=== PATIENT | male | born 1965 ===

== ENCOUNTER 2020-02-19 13:29 | Outpatient (REF) | payer OTHER, SELFPAY ==
--- NOTE | 2020-02-19 | XR_ITS ---
EXAMINATION: PRE-MRI ORBIT CLINICAL INFORMATION: Pre-MRI orbit COMPARISON: None TECHNIQUE: 3 views of the orbits FINDINGS: No radiopaque foreign body is seen about the orbits. Bony structures are unremarkable. XR/XR pre mri screening IMPRESSION: No radiopaque foreign body seen.
--- NOTE | 2020-02-19 | MR_ITS ---
EXAMINATION: MR LUMBAR SPINE WITHOUT CONTRAST CLINICAL INFORMATION: Lumbar radiculopathy. Right leg weakness. COMPARISON: Lumbar spine radiographs 11/01/2019. TECHNIQUE: MRI of the lumbar spine was obtained using routine sequences without contrast. FINDINGS: Please note that there is transitional anatomy. For the purposes of this report L5 is partially sacralized, shares a rudimentary disc with S1, and is partially incorporated into the sacrum. 5 nonrib-bearing lumbar-type vertebral bodies are considered for this report. Please correlate with plain films prior to any percutaneous or surgical intervention. Lumbar alignment is maintained. Vertebral body heights are preserved. There is mild disc volume loss and there is disc desiccation at L5-S1. There is no bone marrow edema. There are no acute fractures. The conus terminates at the L1 level. No significant soft tissue findings. 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 L1-L2: Disc contour is normal. No central canal stenosis and no foraminal stenosis. L2-L3: Disc contour is normal. No central canal stenosis and no foraminal stenosis. L3-L4: Small annular disc bulge and mild bilateral facet arthropathy. No central canal stenosis. Mild foraminal encroachment bilaterally. L4-L5: There is a shallow left paracentral disc protrusion associated with an annular fissure that compresses the traversing left L5 nerve root within the left subarticular zone. Background annular disc bulge and moderate bilateral facet arthropathy. No central canal stenosis and no significant foraminal stenosis. L5-S1: Rudimentary disc contour is normal. No central canal stenosis and no foraminal stenosis. MR/MR lumbar spine wo con IMPRESSION: - Please note that there is transitional anatomy. For the purposes of this report L5 is partially sacralized, shares a rudimentary disc with S1, and is partially incorporated into the sacrum. 5 nonrib-bearing lumbar-type vertebral bodies are considered for this report. Please correlate with plain films prior to any percutaneous or surgical intervention. - At L4-L5, there is a shallow left paracentral disc protrusion associated with an annular fissure that compresses the traversing left L5 nerve root within the left subarticular zone. 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
== END 2020-02-19 13:30 | disposition home or self-care (01) ==
LOC: HO.MRI 13:29
PROVIDERS: Visit Provider Family Medicine
DX: M54.16 Radiculopathy, lumbar region (principal); R29.898 Other symptoms and signs involving the musculoskeletal system
CPT/HCPCS: 72148

== ENCOUNTER → 2020-02-27 15:03 | Outpatient (BNVA) | payer OTHER, SELFPAY | PROVIDERS: PCP Family Medicine; Referring Provider Family Medicine; Visit Provider Nurse Practitioner | DX: Z76.89 Persons encountering health services in other specified circumstances (principal) ==

== ENCOUNTER 2020-04-22 09:23 | Day surgery (SDC) | payer OTHER, SELFPAY ==
[2020-04-11 14:18] VITALS: BMI 23.4
--- NOTE | 2020-04-17 10:27 | HO.ANESPROP2 ---
Documented by User: Ira Johnsonney 04/17/20 10:27 HPI - Anesthesia Eval Consult details Narrative: 54yo M for Colonoscopy [facility] Past Medical History Medical History Incomplete RBBB Family History Family History Father No problems noted. Mother COPD (chronic obstructive pulmonary disease) Sister Autoimmune deficiency syndrome Surgical History Surgical History History of hernia surgery (~2004) Social History Social History Are you a primary acute care surgeon to a significant other at home: No Do you presently have visiting nurse or other home services: No Alcohol intake: current Alcohol intake frequency: 0-2 drinks per day Alcohol type: beer Smoking Status: Unknown if ever smoked Use of substances other than those prescribed or required for medical reasons: Yes Substance Use Type: Marijuana Substance Use Frequency: Occasionally Advance Directives: No Advance Directives Information Provided: No Advance Directives on File: No Recently lost weight without trying: No Meds Allergies Allergy/AdvReac Type Severity Reaction Status Date / Time azithromycin Allergy Unknown vomiting Verified 02/27/20 15:05 Home Medications Medication Instructions Recorded Confirmed Type gabapentin 1 cap PO BID PRN 04/11/20 04/11/20 History Exam Exam Date and Time: April 17, 2020 1027 Height,Weight and Vital Signs: Height 5 ft 9 in Weight 72.121 kg Assessment and Plan Assessment Anesthesia Assessment: Chart Reviewed Documented by User: aMik Patel MD 04/22/20 10:02 [facility] Past Medical History Medical History Incomplete RBBB Family History Family History Father No problems noted. Mother COPD (chronic obstructive pulmonary disease) Sister Autoimmune deficiency syndrome Surgical History Surgical History History of hernia surgery (~2004) Social History Social History Are you a primary acute care surgeon to a significant other at home: No Do you presently have visiting nurse or other home services: No Alcohol intake: current Alcohol intake frequency: 0-2 drinks per day Alcohol type: beer Smoking Status: Unknown if ever smoked Use of substances other than those prescribed or required for medical reasons: Yes Substance Use Type: Marijuana Substance Use Frequency: Occasionally Advance Directives: No Advance Directives Information Provided: No Advance Directives on File: No Recently lost weight without trying: No Meds Allergies Allergy/AdvReac Type Severity Reaction Status Date / Time azithromycin Allergy Unknown vomiting Verified 02/27/20 15:05 Home Medications Medication Instructions Recorded Confirmed Type gabapentin 1 cap PO BID PRN 04/11/20 04/11/20 History Exam Airway Mallampati Class: II TM Dist: >3cm Neck ROM: Full Loose/Missing/Broken Teeth: No Heart: RRR Lungs: nl Assessment and Plan Assessment Anesthesia Assessment: Anesthesia Plan Discussed and Chart Reviewed Final Anesthetic Review NPO: Yes ASA Class: II Final Preanesthetic Review: No Changes in Pt Med Stat, Meds/Allgs Chart Reviewed, Consent Obtained/Reviewed and Anes Risks/Benef Reviewed Patient Risk: Low Procedure Risk: Low Anesthetic Plan Anesthetic Plan: MAC: Disposition: Standard PACU
[2020-04-22 09:34] VITALS: BP 122/76; PULSE 66; RESP 18; TEMP 36.5; O2SAT 98
[2020-04-22] MEDS: Lactated Ringers 1,000 ML 100 ML IVCONT (09:55)
--- NOTE | 2020-04-22 10:24 | W.PM.OPN ---
Operative Note Operative Note Date of Service: 04/22/20 Narrative: Pre-op diagnosis: Colon cancer screening Post-op diagnosis: other (Diverticulosis, hemorrhoids) Procedure: COLONOSCOPY TILL CECUM Consent: Indications for the procedure and potential complications of bleeding, perforation, reaction to medications and missed diagnosis were discussed with the patient and informed consent was obtained. Instrument: Olympus PCF H 190 L variable stiffness pediatric colonoscope Monitoring: Vital signs and clinical assessment, intermittent blood pressure monitoring, continuous EKG monitoring, Pulse oximetry and Carbon Dioxide monitoring were done throughout the procedure. Colon withdrawl time was 18 minutes. Procedure: The patient was placed in the left lateral decubitis position and pre-procedure medications were administered. After a digital rectal examination of the ano-rectum, the video colonoscope was inserted into the rectum and advanced through the colon to the cecum. The colonoscope was slowly withdrawn in a retrograde panoramic fashion and the colon mucosa was carefully examined including a retroflexed view of the rectum. Findings and interventions are described below. Procedure Difficulty: Without difficulty Findings: Terminal Ileum: Not evaluated Cecum: Normal Ascending Colon: Normal Transverse Colon: Normal Descending Colon: Normal Sigmoid Colon: Moderate diverticulosis Rectum: Normal Ano-rectum: Moderate internal hemorrhoids Colon preparation: Good after some irrigation Impression and Post Procedure Diagnosis: Colonoscopy Findings: No polyps were detected Moderate diverticulosis seen in the sigmoid colon Moderate hemorrhoids on retroflexed exam. Plan: Await pathology results Patient has an appointment on 05/07/20 in the [facility] with Ashli Dorsey NP . Repeat Colonoscopy in 10 years. Above findings were reviewed with the patient and a handout on diverticulosis was given in the discharge area Surgeon: Chas Drake MD Anesthesia: MAC (Ana Tolliver, JALEN) Estimated blood loss (mL): 0 Pathology: none sent Condition: stable Disposition: PACU
--- NOTE | 2020-04-22 10:24 | MHC.SHP ---
Pre-Procedural Eval Section A The patient is an INPATIENT: No The History & Physical has been completed within 30 days and I have reviewed it.: No Section B Chief Complaint: Screening Relevant Family History (Specify if Yes): No Relevant Social History: None Present Medications: see Short Stay Collaborative assessment Medical History: Significant History (Right bundle-branch block Anxiety High cholesterol Lumbar radiculopathy with right-sided sciatica Cervical radiculopathy) History of Previous Operations: Relevant previous surgery/procedure and date(s) (Hernia repair) Allergies: Allergies Allergy/AdvReac Type Severity Reaction Status Date / Time azithromycin Allergy Unknown vomiting Verified 02/27/20 15:05 Review of Systems Sugical H&P ROS: Negative: Constitution, Cardiovascular and Respiratory and Yes, Specify: Gastrointestinal (loose stools due to vegtarian diet) Exam Surgical H&P Exam: Normal: Heart, Normal: Lungs, Normal: Extremities and Normal: Abdomen Plan Diagnosis/Plan: Unchanged I have reviewed the history and physical and performed a pertinent physical examination on my patient. No changes have occurred unless specified.
[2020-04-22 11:10] VITALS: BP 90/47; PULSE 51; RESP 18; TEMP 36.1; O2SAT 97
[2020-04-22 11:14] VITALS: BP 86/46; PULSE 48; RESP 16; O2SAT 97
[2020-04-22 11:26] VITALS: BP 89/48; PULSE 47; RESP 16; O2SAT 95
[2020-04-22 11:36] VITALS: BP 89/50; PULSE 44; RESP 15; O2SAT 96
[2020-04-22 11:47] VITALS: BP 104/64; PULSE 60; RESP 13; TEMP 36.1; O2SAT 96
--- NOTE | 2020-04-22 12:15 | HO.POSTANES ---
Post Anesthesia Evaluation Post Anesthesia Evaluation Vital Signs: Vital Signs Temp Pulse Resp BP Pulse Ox 04/22/20 11:47 97 F 60 13 104/64 96 04/22/20 11:36 44 L 15 89/50 L 96 04/22/20 11:26 47 L 16 89/48 L 95 04/22/20 11:14 48 L 16 86/46 L 97 04/22/20 11:10 96.9 F 51 18 90/47 L 97 04/22/20 09:34 97.7 F 66 18 122/76 98 Anesthesia: Monitored Mental Status: Awake Pain Control: Satisfactory Nausea/Vomiting: None Hydration: Adequate Anesthesia-Related Issues: No Anes. Related Issues
== END 2020-04-22 12:23 | disposition home or self-care (01) ==
PROVIDERS: PCP Family Medicine; Visit Provider Internal Medicine Gastroenterology
PROC: 0DJD8ZZ Inspection of Lower Intestinal Tract, Via Natural or Artificial Opening Endoscopic (ICD-10-PCS; CPT 45378; principal; 2020-04-22 10:30)
DX: Z12.11 Encounter for screening for malignant neoplasm of colon (principal); K57.30 Diverticulosis of large intestine without perforation or abscess without bleeding; K64.8 Other hemorrhoids; I45.10 Unspecified right bundle-branch block; F41.9 Anxiety disorder, unspecified; Z79.899 Other long term (current) drug therapy; F12.90 Cannabis use, unspecified, uncomplicated; Z88.1 Allergy status to other antibiotic agents
CPT/HCPCS: 45378

== ENCOUNTER 2023-05-26 15:50 | Outpatient (AMB) | payer OTHER, SELFPAY ==
[2023-05-26 16:16] VITALS: BP 122/78; PULSE 81; O2SAT 99; BMI 22.3
--- NOTE | 2023-05-26 16:16 | A.OFFPC_ITS ---
Vital Signs 05/26/23 16:16 Height 5 ft 9 in Weight 151 lb BMI 22.3 BP 122/78 Blood Pressure Location Lt brachial Position Sitting Pulse 81 Pulse Source Pulse Oximeter Pulse Oximetry (%) 99 Oxygen Delivery Method Room Air Intake Visit Reasons: phy Intake Note: Patient is here for his physical today, would like back and neck checked out today, too. Patient would like to talk about arthritis regarding that. Allergies azithromycin Allergy (Unknown, Verified 05/26/23 16:18) vomiting Tobacco use date assessed: 05/26/23 Dental Screening Dental Screen Date: 05/26/23 Did you have a dental visit in the last 12 months?: No Did you have a dental problem in the last 6 months where you did not have access to dental care?: No Was dental information given to patient?: Patient declined HPI phy HPI Details 57 y/o male presents for a CPE with f/u labs and health maintenance. No recent labs to review. Pt has ongoing complaints of back/neck pain. He reports he has trialed physical therapy before which had caused more pain. [facility] Medical History Incomplete RBBB Surgical History Hx of LASIK History of hernia surgery (~2004) Family History Father No problems noted. Mother COPD (chronic obstructive pulmonary disease) Sister Autoimmune deficiency syndrome Social History Housing: House Are you a primary senior care provider to a significant other at home: No Do you presently have visiting nurse or other home services: No Alcohol intake: current Alcohol intake frequency: 0-2 drinks per day Alcohol type: beer Patient Tobacco Use Status: Never used Tobacco e-Cigarette/Vaping Use: Never Used Substance Use Type: Marijuana service: Yes Current occupational status: retired Current occupation: Semi retired. Cognitive needs: No Hearing needs: No Vision needs: No Questionnaire PHQ-9 Over the last 2 weeks, how often have you been bothered by any of the following problems? 1. Little interest or pleasure in doing things: not at all 2. Feeling down, depressed, or hopeless: several days 3. Trouble falling or staying asleep, or sleeping too much: nearly every day 4. Feeling tired or having little energy: several days 5. Poor appetite or overeating: not at all 6. Feeling bad about yourself - or that you are a failure or have let yourself or your family down: not at all 7. Trouble concentrating on things, such as reading the newspaper or watching television: not at all 8. Moving or speaking so slowly that other people could have noticed. Or the opposite - being so fidgety or restless that you have been moving around a lot more than usual: not at all 9. Thoughts that you would be better off or of hurting yourself in some way: not at all Total score: 5 Source: Developed by Drs. Marcus Sparks, Maye Ureña, Sandeep Leyva and colleagues, with an educational shelley from [employer]. Thrive Questionnaire Date Thrive assessed: 05/26/23 I am a: Patient What is your living situation today?: I have a steady place to live Within the past 12 months, did the food you bought not last and you didn't have the money to get more?: Never true Within the past 12 months, did you worry whether your food would run out before you got money to buy more?: Never true Do you have trouble paying for medicines?: No Do you have trouble getting transportation to medical appointments?: No Do you have trouble paying your heating and electricity bill?: No Do you have trouble taking care of your child, family member or friend?: No Do you have trouble with day-to-day activities such as bathing, preparing meals, shopping, managing finances, etc.?: No Are you currently unemployed and looking for a job?: No Are you interested in more education?: No THRIVE Score: 0 AUDIT C Alcohol Use Questionnaire (AUDIT-C) 1. How often do you have a drink containing alcohol?: 4 or more times a week 2. How many drinks containing alcohol do you have on a typical day when you are drinking?: 1 or 2 3. How often do you have six or more drinks on one occasion?: Never Total Score: 4 ELVIRA-7 AMB Questionnaire ELVIRA-7 Date ELVIRA - 7 assessed: 05/26/23 Feeling nervous, anxious, or on edge: 1 = Several days Not being able to stop or control worryin = Several days Worrying too much about different things: 1 = Several days Trouble relaxin = Several days Being so restless that it is hard to sit still: 0 = Not at all Becoming easily annoyed or irritable: 1 = Several days Feeling afraid as if something awful might happen: 0 = Not at all Total ELVIRA-7 score (0-4 normal; 5-9 mild; 10-14 moderate; 15-21 severe): 5 Source: Developed by Drs. Marcus Sparks, Maye Ureña, Sandeep Leyva and colleagues, with an educational shelley from [employer]. Review of Systems Const Denies chills, Denies fatigue, Denies fever(s), Denies headache(s) and Denies weakness Eyes Denies change in vision ENT Denies dizziness, Denies headache(s), Denies hearing loss, Denies nasal congestion, Denies sinus pain, Denies sinus pressure and Denies sore throat Card Denies chest pain, Denies lightheadedness, Denies dyspnea and Denies other (palpitations) Resp Denies cough, Denies dyspnea and Denies wheezing GI Denies abdominal pain, Denies melena, Denies hematochezia, Denies change in bowel habits, Denies dyspepsia and Denies nausea Denies hematuria and Denies dysuria Musc Denies abnormal gait, Denies myalgias, Denies arthralgias, Denies numbness and Denies tingling Skin/Breast Denies rash, Denies unusual bruising and Denies wounds Neuro Denies abnormal gait, Denies dizziness, Denies headache(s), Denies memory loss, Denies numbness, Denies Sensory deficit (Neuro), Denies tingling and Denies weakness Psych Denies anxiety, Denies depression and Denies memory loss Endo Denies cold intolerance, Denies fatigue, Denies heat intolerance, Denies polydipsia and Denies polyuria Anatoly/Lymph Denies easy bleeding and Denies easy bruising Aller/Immun Denies wheezing Physical exam (Primary Care) Vital Signs: Last Vital Signs Pulse 81 05/26/23 16:16 BP 122/78 05/26/23 16:16 Pulse Ox 99 05/26/23 16:16 Oxygen Delivery Method Room Air 05/26/23 16:16 BMI result Body Mass Index 22.3 Tobacco/Smoking Status: Tobacco use Status Tobacco use date assessed 05/26/23 05/26/23 16:33 Patient Tobacco Use Status Never used Tobacco 05/26/23 16:33 e-Cigarette/Vaping Use Never Used 05/26/23 16:33 PHQ-9: PHQ-9 Score PHQ-9: Total score 5 05/26/23 16:33 Thrive Assessment: Date of Thrive Assessment Date Thrive assessed 05/26/23 05/26/23 16:33 Const General: no acute distress, well developed, alert and awake Nutritional Appearance: well nourished Orientation/consciousness: patient oriented x3 HENMT Head: Yes normocephalic and Yes atraumatic Ears: hearing grossly normal bilaterally and TM's normal bilaterally General nose exam: Normal external nose present and Normal nares present Mouth: Normal oral and palatal mucosa present and moist mucous membranes Teeth and gingiva: dentition normal Throat: Yes posterior oropharynx normal Eyes General: appearance normal, both eyes and all related structures Pupils: Equal, round and reactive pupils present and Pupil accommodation reflex normal EOM: EOMs intact bilaterally Neck Neck: Yes normal visual inspection, Yes no lymphadenopathy and Yes trachea midline Thyroid: Thyroid normal Carotids: no bruits Lymphatic: no lymphadenopathy noted Chest Chest palpation & inspection: normal inspection of the chest Resp Effort & Inspection: normal respiratory effort Auscultation: clear to auscultation bilaterally Cardio Rate: regular rate Rhythm: regular rhythm Heart sounds: S1 normal heart sound present, S2 normal heart sound present, no gallops, no murmurs and no rubs Bruits: no abdominal aortic bruits and no carotid bruits GI Palpation (GI): No Abdominal aortic bruit present, Soft to palpation, nontender, No hepatosplenomegaly present and No Rebound tenderness present Auscultation: normal bowel sounds General: Yes no CVA tenderness Back/Spine/Pelvis Back: no CVA tenderness Cervical Spine: cervical ROM normal and No Cervical spine tenderness Thoracic/Lumbar Spine: thoraco-lumbar ROM normal, No pain with thoraco-lumbar ROM, No thoracic spinal tenderness and No lumbar spinal tenderness Skin Lesions: no lesions Rashes: no rashes Trauma: no lacerations or abrasions Wounds: no wounds Nails: normal Neuro General: patient oriented x3 Cranial nerves: Yes Equal, round and reactive pupils present Cognition (Neuro): normal cognition Gait exam (Neuro): Normal gait present Motor exam (neuro): 5/5 motor strength present throughout Sensory Exam: No Sensory deficit (Neuro) Deep tendon reflexes (DTR's): Right patellar reflex intensity grade: 2+ and Left patellar reflex intensity grade: 2+ Extrem General: Yes normal to inspection and No edema Psych Appearance: grossly normal Affect: normal affect Attitude: cooperative Thought process: Normal thought process present Assessment and Plan Assessment & Plan (1) Adult general medical exam: Code(s): Z00.00 - Encounter for general adult medical examination without abnormal findings Plan: 57-year-old?male?presents?for?complete?physical?exam Encouraged?ongoing?healthy?diet?with?active?lifestyle?and?plenty?of?exercise (2) Cervical radiculopathy: Code(s): M54.12 - Radiculopathy, cervical region Plan: History?of?cervical?radiculopathy?and?lumbar?spine?disc?degeneration. Had?seen?Neurosurgery?in?2020?after?MRI?but?no?indication?at?that?time?for?surge ry. Will?repeat?x-rays?and?patient?will?try?nonsteroidal?anti-inflammatories?and?we ?will?consider?physical?therapy?after?x-ray. (3) Polyarthralgia: Code(s): M25.50 - Pain in unspecified joint Plan: Polyarthralgia?of?spine?and?hands Possible?inflammatory?or?osteoarthritis. Check?inflammatory?markers?and?x-rays?of?hands As?above,?patient?will?use?NSAIDs (4) Sun-damaged skin: Code(s): L57.8 - Other skin changes due to chronic exposure to nonionizing radiation Plan: In?refer?to?dermatology?for?skin?survey (5) Colon cancer screening: Code(s): Z12.11 - Encounter for screening for malignant neoplasm of colon Plan: Patient?says?he?had?a?colonoscopy?in?2020?and?was?told?to?follow-up?in?10?years. ??Up-to-date.??Follow-up?in?2030 (6) Screening for prostate cancer: Code(s): Z12.5 - Encounter for screening for malignant neoplasm of prostate Plan: Check?PSA (7) Lumbar back pain with radiculopathy affecting right lower extremity: Code(s): M54.16 - Radiculopathy, lumbar region Plan: Ongoing?lumbar?spine?pain,?decreased?flexibility?and?radiculopathy History?of?disc?compression?though?neuro?surgery?had?found?no?indication?for?estuardo gical?intervention?at?that?time. Repeating?x-rays Will?follow-up?at?his?next?visit. Orders: Orders Complete Blood Count Auto Diff Today Z00.00 - Encounter for general adult medical examination without abnormal findings Prostate Specific Antigen Scr Today Z12.5 - Encounter for screening for malignant neoplasm of prostate UA and rflx microscopic Today Z00.00 - Encounter for general adult medical examination without abnormal findings Erythrocyte Sedimentation Rate Today M54.12 - Radiculopathy, cervical region Rheumatoid Factor Today M25.50 - Pain in unspecified joint Comprehensive Independence. Panel Fast Today Z00.00 - Encounter for general adult medical examination without abnormal findings Microalbumin, Random (w Creat) Today I10 - Essential (primary) hypertension Lipid Panel Today Z00.00 - Encounter for general adult medical examination without abnormal findings TSH reflex Free T4 Today Z00.00 - Encounter for general adult medical examination without abnormal findings CRP High Sensitivity Today M54.12 - Radiculopathy, cervical region XR cervical spine 3V Today M54.12 - Radiculopathy, cervical region XR lumbar spine 2-3V Today M54.16 - Radiculopathy, lumbar region XR thoracic spine 2V Today M25.50 - Pain in unspecified joint, M54.9 - Dorsalgia, unspecified XR hand LT min 3V Today M25.50 - Pain in unspecified joint, M79.642 - Pain in left hand XR hand RT min 3V Today M25.50 - Pain in unspecified joint, M79.641 - Pain in right hand Cyclic Citrullinated Peptide Today M25.50 - Pain in unspecified joint KELLY Reflex Titer and Pattern Today M25.50 - Pain in unspecified joint Referrals Dermatology Referral L57.8 - Other skin changes due to chronic exposure to nonionizing radiation Coding Level of Care Code Est Pt Level 3 (62801) Est Pt Prev Care 40-64y(88259) Diagnoses Adult general medical exam Z00.00 Cervical radiculopathy M54.12 Polyarthralgia M25.50 Sun-damaged skin L57.8 Colon cancer screening Z12.11 Screening for prostate cancer Z12.5 Lumbar back pain with radiculopathy affecting right lower extremity M54.16
== END 2023-05-31 16:10 | disposition home or self-care (01) ==
PROVIDERS: PCP Family Medicine; Visit Provider Family Medicine
DX: Z00.00 Encounter for general adult medical examination without abnormal findings (principal); M54.12 Radiculopathy, cervical region; M25.50 Pain in unspecified joint; L57.8 Other skin changes due to chronic exposure to nonionizing radiation; M54.16 Radiculopathy, lumbar region
CPT/HCPCS: 99213; 99396

== ENCOUNTER 2023-05-28 09:13 | Outpatient (REF) | payer OTHER, SELFPAY ==
[2023-05-28 11:31] LABS: MANUAL DIFF FLAG NO
[2023-05-28 11:50] LABS: Basophils Absolute Auto 0.1 X10*3/uL (0.0-0.2); Basophils Percent Auto 1.3 % (0-2); Eosinophils Absolute Auto 0.2 X10*3/uL (0.0-0.4); Eosinophils Percent Auto 3.8 % (0-4); Hematocrit 41.7 % (42.0-52.0); Hemoglobin 14.2 g/dl (14.0-18.0); Imm Gran Abs Auto 0.01 X10*3/uL (0.00-0.03); Imm Gran Pct Auto 0.2 % (0.0-0.4); Lymphocytes Percent Auto 37.5 % (20-40); Mean Corpuscular HGB Conc 34.1 g/dl (31.0-36.0); Mean Platelet Volume 9.8 fL (9.4-12.4); Monocytes Absolute Auto 0.5 X10*3/uL (0.1-1.2); Neutrophils Absolute Auto 2.5 x10*3/uL (2.0-8.3); Neutrophils Percent Auto 48.2 % (45-73); Platelet Count 337 X10*3/uL (160-400); Red Blood Count 4.74 X10*6/uL (4.60-5.80); Red Cell Distribution Width 13.4 % (11.0-16.0); White Blood Count 5.2 X10*3/uL (4.8-10.8)
[2023-05-28 12:02] LABS: Appearance Urine Clear; Color Urine Yellow; Glucose Urine UA Negative (Negative); Leukocyte Esterase Urine Negative (Negative); Nitrite Urine Negative (Negative); PH 8.5 (5.0-9.0); Urine Blood Negative (Negative); Urine Ketones Negative (Negative); Urine Protein Negative (Neg-Trace)
[2023-05-28 12:18] LABS: Alanine Aminotransferase 18 U/L (0-40); Albumin Level 4.2 g/dL (3.5-5.0); Alkaline Phosphatase 55 U/L (39-117); Anion Gap 10 (12-20); Aspartate Amino Transferase 19 U/L (5-37); Bilirubin Total 0.5 mg/dL (0.0-1.0); Blood Urea Nitrogen 13 mg/dL (9-16); Calcium 9.4 mg/dL (8.4-10.2); Carbon Dioxide 26 mmol/L (22-29); Chloride 107 mmol/L (96-108); Cholesterol 228 mg/dL (<200); Estimated Glomerular Filt Rate > 60; Glucose Fasting 93 mg/dL (60-99); HDL Cholesterol 56 mg/dL (>40); LDL Cholesterol Calculated 160 mg/dL (<100); Potassium 4.2 mmol/L (3.3-5.1); Sodium 139 mmol/L (135-145); Triglycerides 64 mg/dL (<150)
[2023-05-28 12:26] LABS: Erythrocyte Sedimentation Rate 4 MM/HR (0-15)
[2023-05-28 12:36] LABS: TSH reflex Free T4 1.15 uIU/mL (0.32-4.0)
[2023-05-28 12:38] LABS: Creatinine Urine 135.31 mg/dL; Microalbum/Creatinine Ratio Ur 4.4 ug/mg cr (<30)
[2023-05-28 18:28] LABS: Rheumatoid Factor < 13.0 IU/mL (<15.0)
[2023-05-28 18:43] LABS: Prostate Specific Antigen Scr 0.89 ng/mL (<0.05-4.0)
[2023-05-31 11:35] LABS: CRP High Sensitivity 1.4 mg/L
[2023-05-31 14:54] LABS: Cyclic Citrullinated Peptide <16 UNITS
[2023-06-01 15:29] LABS: Anti Nuclear Antibody Screen NEGATIVE (NEGATIVE)
== END 2023-05-28 09:14 | disposition home or self-care (01) ==
LOC: HO.WFDLDS 09:13
PROVIDERS: Visit Provider Family Medicine
DX: Z00.00 Encounter for general adult medical examination without abnormal findings (principal); Z12.5 Encounter for screening for malignant neoplasm of prostate; M54.12 Radiculopathy, cervical region; I10 Essential (primary) hypertension
CPT/HCPCS: 36415; 80053; 80061; 81003; 82043; 82570; 84153; 84443; 85025; 85652; 86038; 86141; 86200; 86431

== ENCOUNTER 2023-07-02 07:03 | Outpatient (REF) | payer OTHER, SELFPAY ==
--- NOTE | ~2023-07-02 | XR_ITS ---
EXAMINATION: XR RIGHT HAND, LEFT HAND, LUMBAR SPINE, THORACIC SPINE, CERVICAL SPINE CLINICAL INFORMATION: Chronic pain in lumbar, bilateral hands unspecified joints, cervical radiculopathy. COMPARISON: MR lumbar spine of 02/19/2020. Radiographs of the cervical and lumbar spine of 11/01/2019. TECHNIQUE: 3 views of each hand. 3 views of the lumbar spine. 3 views of the thoracic spine. 4 views of the cervical spine. FINDINGS: Cervical Spine: Moderate multilevel cervical spondylosis most notable for moderate loss of disc space height at C3-C4 and C4-C5. Thoracic Spine: Mild multilevel degenerative changes in the thoracic spine. Minimal rightward curvature of the lower thoracic spine. No thoracic vertebral body compression fractures are appreciated. Lumbar Spine: Slight leftward curvature of the ehk-od-twdst lumbar spine. Moderate degenerative changes in the bilateral sacroiliac joints. Rounded pelvic calcifications are likely vascular. Facet arthritis in the sbs-ix-pvwhn lumbar spine. Moderate multilevel lumbar spondylosis with loss of disc space height most notable at L5-S1. Possible spondylolysis at L5-S1 is difficult to confirm. Right Hand: Moderate degenerative changes in the first carpometacarpal joint with joint space narrowing and hypertrophic change. Mild degenerative changes with hypertrophic change in scattered DIP joints. No acute displaced fracture appreciated. Left Hand: Moderate degenerative changes in the first carpometacarpal joint with joint space narrowing and hypertrophic change. Mild degenerative changes with hypertrophic change in scattered DIP joints. No acute displaced fracture appreciated. XR/XR hand LT min 3V IMPRESSION: 1. Moderate degenerative changes in the bilateral first carpometacarpal joints. 2. Moderate multilevel cervical spondylosis most notable for moderate loss of disc space height at C3-C4 and C4-C5. 3. Mild multilevel degenerative changes in the thoracic spine. 4. Moderate multilevel lumbar spondylosis with loss of disc space height most notable at L5-S1. Possible spondylolysis at L5-S1 is difficult to confirm. 5. Moderate degenerative changes in the bilateral sacroiliac joints. 6. Mild degenerative changes in scattered DIP joints of both hands.
--- NOTE | ~2023-07-02 | XR_ITS ---
EXAMINATION: XR RIGHT HAND, LEFT HAND, LUMBAR SPINE, THORACIC SPINE, CERVICAL SPINE CLINICAL INFORMATION: Chronic pain in lumbar, bilateral hands unspecified joints, cervical radiculopathy. COMPARISON: MR lumbar spine of 02/19/2020. Radiographs of the cervical and lumbar spine of 11/01/2019. TECHNIQUE: 3 views of each hand. 3 views of the lumbar spine. 3 views of the thoracic spine. 4 views of the cervical spine. FINDINGS: Cervical Spine: Moderate multilevel cervical spondylosis most notable for moderate loss of disc space height at C3-C4 and C4-C5. Thoracic Spine: Mild multilevel degenerative changes in the thoracic spine. Minimal rightward curvature of the lower thoracic spine. No thoracic vertebral body compression fractures are appreciated. Lumbar Spine: Slight leftward curvature of the eii-hd-fmffn lumbar spine. Moderate degenerative changes in the bilateral sacroiliac joints. Rounded pelvic calcifications are likely vascular. Facet arthritis in the kpb-yd-fdyzz lumbar spine. Moderate multilevel lumbar spondylosis with loss of disc space height most notable at L5-S1. Possible spondylolysis at L5-S1 is difficult to confirm. Right Hand: Moderate degenerative changes in the first carpometacarpal joint with joint space narrowing and hypertrophic change. Mild degenerative changes with hypertrophic change in scattered DIP joints. No acute displaced fracture appreciated. Left Hand: Moderate degenerative changes in the first carpometacarpal joint with joint space narrowing and hypertrophic change. Mild degenerative changes with hypertrophic change in scattered DIP joints. No acute displaced fracture appreciated. XR/XR cervical spine 3V IMPRESSION: 1. Moderate degenerative changes in the bilateral first carpometacarpal joints. 2. Moderate multilevel cervical spondylosis most notable for moderate loss of disc space height at C3-C4 and C4-C5. 3. Mild multilevel degenerative changes in the thoracic spine. 4. Moderate multilevel lumbar spondylosis with loss of disc space height most notable at L5-S1. Possible spondylolysis at L5-S1 is difficult to confirm. 5. Moderate degenerative changes in the bilateral sacroiliac joints. 6. Mild degenerative changes in scattered DIP joints of both hands.
--- NOTE | ~2023-07-02 | XR_ITS ---
EXAMINATION: XR RIGHT HAND, LEFT HAND, LUMBAR SPINE, THORACIC SPINE, CERVICAL SPINE CLINICAL INFORMATION: Chronic pain in lumbar, bilateral hands unspecified joints, cervical radiculopathy. COMPARISON: MR lumbar spine of 02/19/2020. Radiographs of the cervical and lumbar spine of 11/01/2019. TECHNIQUE: 3 views of each hand. 3 views of the lumbar spine. 3 views of the thoracic spine. 4 views of the cervical spine. FINDINGS: Cervical Spine: Moderate multilevel cervical spondylosis most notable for moderate loss of disc space height at C3-C4 and C4-C5. Thoracic Spine: Mild multilevel degenerative changes in the thoracic spine. Minimal rightward curvature of the lower thoracic spine. No thoracic vertebral body compression fractures are appreciated. Lumbar Spine: Slight leftward curvature of the qrn-ag-rhaxe lumbar spine. Moderate degenerative changes in the bilateral sacroiliac joints. Rounded pelvic calcifications are likely vascular. Facet arthritis in the dqv-ex-exnfw lumbar spine. Moderate multilevel lumbar spondylosis with loss of disc space height most notable at L5-S1. Possible spondylolysis at L5-S1 is difficult to confirm. Right Hand: Moderate degenerative changes in the first carpometacarpal joint with joint space narrowing and hypertrophic change. Mild degenerative changes with hypertrophic change in scattered DIP joints. No acute displaced fracture appreciated. Left Hand: Moderate degenerative changes in the first carpometacarpal joint with joint space narrowing and hypertrophic change. Mild degenerative changes with hypertrophic change in scattered DIP joints. No acute displaced fracture appreciated. XR/XR lumbar spine 2-3V IMPRESSION: 1. Moderate degenerative changes in the bilateral first carpometacarpal joints. 2. Moderate multilevel cervical spondylosis most notable for moderate loss of disc space height at C3-C4 and C4-C5. 3. Mild multilevel degenerative changes in the thoracic spine. 4. Moderate multilevel lumbar spondylosis with loss of disc space height most notable at L5-S1. Possible spondylolysis at L5-S1 is difficult to confirm. 5. Moderate degenerative changes in the bilateral sacroiliac joints. 6. Mild degenerative changes in scattered DIP joints of both hands.
--- NOTE | ~2023-07-02 | XR_ITS ---
EXAMINATION: XR RIGHT HAND, LEFT HAND, LUMBAR SPINE, THORACIC SPINE, CERVICAL SPINE CLINICAL INFORMATION: Chronic pain in lumbar, bilateral hands unspecified joints, cervical radiculopathy. COMPARISON: MR lumbar spine of 02/19/2020. Radiographs of the cervical and lumbar spine of 11/01/2019. TECHNIQUE: 3 views of each hand. 3 views of the lumbar spine. 3 views of the thoracic spine. 4 views of the cervical spine. FINDINGS: Cervical Spine: Moderate multilevel cervical spondylosis most notable for moderate loss of disc space height at C3-C4 and C4-C5. Thoracic Spine: Mild multilevel degenerative changes in the thoracic spine. Minimal rightward curvature of the lower thoracic spine. No thoracic vertebral body compression fractures are appreciated. Lumbar Spine: Slight leftward curvature of the qxo-xe-qtqnw lumbar spine. Moderate degenerative changes in the bilateral sacroiliac joints. Rounded pelvic calcifications are likely vascular. Facet arthritis in the yay-mg-rbqxc lumbar spine. Moderate multilevel lumbar spondylosis with loss of disc space height most notable at L5-S1. Possible spondylolysis at L5-S1 is difficult to confirm. Right Hand: Moderate degenerative changes in the first carpometacarpal joint with joint space narrowing and hypertrophic change. Mild degenerative changes with hypertrophic change in scattered DIP joints. No acute displaced fracture appreciated. Left Hand: Moderate degenerative changes in the first carpometacarpal joint with joint space narrowing and hypertrophic change. Mild degenerative changes with hypertrophic change in scattered DIP joints. No acute displaced fracture appreciated. XR/XR thoracic spine 2V IMPRESSION: 1. Moderate degenerative changes in the bilateral first carpometacarpal joints. 2. Moderate multilevel cervical spondylosis most notable for moderate loss of disc space height at C3-C4 and C4-C5. 3. Mild multilevel degenerative changes in the thoracic spine. 4. Moderate multilevel lumbar spondylosis with loss of disc space height most notable at L5-S1. Possible spondylolysis at L5-S1 is difficult to confirm. 5. Moderate degenerative changes in the bilateral sacroiliac joints. 6. Mild degenerative changes in scattered DIP joints of both hands.
--- NOTE | ~2023-07-02 | XR_ITS ---
EXAMINATION: XR RIGHT HAND, LEFT HAND, LUMBAR SPINE, THORACIC SPINE, CERVICAL SPINE CLINICAL INFORMATION: Chronic pain in lumbar, bilateral hands unspecified joints, cervical radiculopathy. COMPARISON: MR lumbar spine of 02/19/2020. Radiographs of the cervical and lumbar spine of 11/01/2019. TECHNIQUE: 3 views of each hand. 3 views of the lumbar spine. 3 views of the thoracic spine. 4 views of the cervical spine. FINDINGS: Cervical Spine: Moderate multilevel cervical spondylosis most notable for moderate loss of disc space height at C3-C4 and C4-C5. Thoracic Spine: Mild multilevel degenerative changes in the thoracic spine. Minimal rightward curvature of the lower thoracic spine. No thoracic vertebral body compression fractures are appreciated. Lumbar Spine: Slight leftward curvature of the tjg-ar-fiwvb lumbar spine. Moderate degenerative changes in the bilateral sacroiliac joints. Rounded pelvic calcifications are likely vascular. Facet arthritis in the pez-ny-zfypl lumbar spine. Moderate multilevel lumbar spondylosis with loss of disc space height most notable at L5-S1. Possible spondylolysis at L5-S1 is difficult to confirm. Right Hand: Moderate degenerative changes in the first carpometacarpal joint with joint space narrowing and hypertrophic change. Mild degenerative changes with hypertrophic change in scattered DIP joints. No acute displaced fracture appreciated. Left Hand: Moderate degenerative changes in the first carpometacarpal joint with joint space narrowing and hypertrophic change. Mild degenerative changes with hypertrophic change in scattered DIP joints. No acute displaced fracture appreciated. XR/XR hand RT min 3V IMPRESSION: 1. Moderate degenerative changes in the bilateral first carpometacarpal joints. 2. Moderate multilevel cervical spondylosis most notable for moderate loss of disc space height at C3-C4 and C4-C5. 3. Mild multilevel degenerative changes in the thoracic spine. 4. Moderate multilevel lumbar spondylosis with loss of disc space height most notable at L5-S1. Possible spondylolysis at L5-S1 is difficult to confirm. 5. Moderate degenerative changes in the bilateral sacroiliac joints. 6. Mild degenerative changes in scattered DIP joints of both hands.
== END 2023-07-02 07:04 | disposition home or self-care (01) ==
LOC: HO.XRAY 07:03
PROVIDERS: PCP Family Medicine; Visit Provider Family Medicine
DX: M54.12 Radiculopathy, cervical region (principal); M54.16 Radiculopathy, lumbar region; M54.9 Dorsalgia, unspecified; M79.642 Pain in left hand; M79.641 Pain in right hand
CPT/HCPCS: 72040; 72070; 72100; 73130

== ENCOUNTER 2023-09-17 08:16 | Outpatient (AMB) | payer OTHER, SELFPAY ==
[2023-09-17 08:18] VITALS: BP 128/70; PULSE 87; RESP 14; TEMP 36.6; O2SAT 99; BMI 22.1
--- NOTE | 2023-09-17 08:18 | A.OFFPC_ITS ---
Vital Signs 09/17/23 08:18 Height 5 ft 9 in Weight 149 lb 8 oz BMI 22.1 BP 128/70 Blood Pressure Location Rt brachial Position Sitting Respiration 14 Pulse 87 Pulse Source Pulse Oximeter Temp 97.9 F Temp Source Temporal Artery Scan Pulse Oximetry (%) 99 Oxygen Delivery Method Room Air Intake Visit Reasons: X-rays and blood work f/u Intake Note: Patient would like referral to rheumatology. Clearing Distribution Clerk Required: No Accompanied by: Self / Same As Patient Allergies Seasonal Allergies Allergy (Intermediate, Verified 09/17/23 08:24) Itchy Eyes azithromycin Allergy (Unknown, Verified 09/17/23 08:24) vomiting Medication List - Last Reconciled 09/17/23 by Hudson Cuba MD No Known Home Meds Tobacco use date assessed: 05/26/23 Dental Screening Dental Screen Date: 05/26/23 HPI X-rays and blood work f/u HPI Details 57 y/o male presents today for x-rays an d blood work f/u. X-rays show: 1. Moderate degenerative changes in the bilateral first carpometacarpal joints. 2. Moderate multilevel cervical spondylo sis most notable for moderate loss of disc space height at C3-C4 and C4-C5. 3. Mild multilevel degenerative changes in the thoracic spine. 4. Moderate multilevel lumbar spondylosi s with loss of disc space height most notable at L5-S1. Possible spondylolysis at L5-S1 is difficult to confirm. 5. Moderate degenerative changes in the bilateral sacroiliac joints. 6. Mild degenerative changes in scattere d DIP joints of both hands. Labs were drawn 05/28/23. Reviewed labs with pt. Triglycerides 64. TC 228. LDL 160. HDL 56. PFSH Medical History Incomplete RBBB Surgical History Hx of LASIK History of hernia surgery (~2004) Family History Father No problems noted. Mother COPD (chronic obstructive pulmonary disease) Sister Autoimmune deficiency syndrome Other Mental health disorder Substance abuse Social History (Updated 09/17/23 @ 08:27 by CATHERINE Gonzalez) Household Members: Spouse and Family Both parents involved: No Caregiver staying overnight: No Housing: House Are you a primary pediatric care coordinator to a significant other at home: No Do you presently have visiting nurse or other home services: No 75 years or older and lives alone: No Alcohol intake: current Alcohol intake frequency: 0-2 drinks per day Alcohol type: beer Patient Tobacco Use Status: Never used Tobacco e-Cigarette/Vaping Use: Never Used Use of substances other than those prescribed or required for medical reasons: No Substance Use Type: Marijuana Currently Displaying Signs/Symptoms of Drug Intoxication Withdrawal: No Any prior treatment program specific to substance use: No Have you been hit, kicked, punched, or otherwise hurt by someone within the past year? If so, by whom?: No Do you feel safe in your current relationship?: No Is there a partner from a previous relationship who is making you feel unsafe now?: No Are you made to feel afraid or neglected: No service: Yes Current occupational status: retired Current occupation: Semi retired. Cognitive needs: No Hearing needs: No Vision needs: No Questionnaire Thrive Questionnaire Date Thrive assessed: 05/26/23 ELVIRA-7 AMB Questionnaire ELVIRA-7 Date ELVIRA - 7 assessed: 05/26/23 Source: Developed by Drs. Marcus Sparks, Maye Ureña, Sandeep Leyva and colleagues, with an educational shelley from [employer]. Review of Systems Const Denies chills, Denies fatigue, Denies fever(s), Denies headache(s) and Denies weakness ENT Denies dizziness and Denies headache(s) Card Denies dyspnea Resp Denies cough, Denies dyspnea, Denies wheezing and Denies other (shortness of breath) Musc Denies numbness and Denies tingling Neuro Denies dizziness, Denies headache(s), Denies numbness, Denies tingling and Denies weakness Psych Denies anxiety and Denies depression Endo Denies fatigue Aller/Immun Denies wheezing Physical exam (Primary Care) Vital Signs: Last Vital Signs Temp 97.9 F 09/17/23 08:18 Pulse 87 09/17/23 08:18 Resp 14 09/17/23 08:18 BP 128/70 09/17/23 08:18 Pulse Ox 99 09/17/23 08:18 Oxygen Delivery Method Room Air 09/17/23 08:18 BMI result Body Mass Index 22.1 Tobacco/Smoking Status: Tobacco use Status Tobacco use date assessed 05/26/23 09/17/23 08:24 Patient Tobacco Use Status Never used Tobacco 09/17/23 08:27 e-Cigarette/Vaping Use Never Used 09/17/23 08:27 Thrive Assessment: Date of Thrive Assessment Date Thrive assessed 05/26/23 09/17/23 08:24 Const General: well developed; No acute distress Nutritional Appearance: well nourished Orientation/consciousness: patient oriented x3 HENMT Head: Yes normocephalic and Yes atraumatic Eyes General: appearance normal, both eyes and all related structures Pupils: Equal, round and reactive pupils present EOM: EOMs intact bilaterally Resp Effort & Inspection: normal respiratory effort Neuro General: patient oriented x3 and gait normal Cranial nerves: Yes Equal, round and reactive pupils present Psych Affect: normal affect Assessment and Plan Assessment & Plan (1) Polyarthralgia: Code(s): M25.50 - Pain in unspecified joint Plan: Joint?pain?of?bilateral?hands?pain?at?cervical?spine?and?lumbar?spine X-rays?and?lab?work?suggest?osteoarthritis?and?degenerative?disc?disease. No?convincing?evidence?of?a?primary?inflammatory?or?autoimmune?disorder. He?uses?ibuprofen?only?very?intermittently?as?it?bothers?his?stomach?but?it?did? seem?to?work. Try?celecoxib Will?start?occu pational?therapy?and?give?him?a?wrist?brace?for?forearm?and?wrist?pain.??Wrist?b race?for?right?wrist?and?forearm Referred?to?physiatry?for?multilevel?cervical radiculopathy?and?cervicalgia?and?also?lumbar?radiculopathy (2) Lumbar back pain with radiculopathy affecting right lower extremity: Code(s): M54.16 - Radiculopathy, lumbar region Plan: As?above (3) Cervical radiculopathy: Code(s): M54.12 - Radiculopathy, cervical region Plan: As?above (4) Hypercholesterolemia: Code(s): E78.00 - Pure hypercholesterolemia, unspecified Plan: LDL?cholesterol?is?much?too?high He?is?vegetarian?and?has?an?excellent?body?mass?index He?will?work?on?a?diet?lower?in?saturated?fats ?and?cholesterol?and?decrease?intake?of?fats?and?oils?such?as?cheese?which?he?sa ys?he?eats?every?day Will?recheck?lipids?at?next?visit. If?not?at?goal?but?if?he?is?able?to?bring?this?down?some?we?may ?be?able?to?use?a?non?statin?medication Orders: Orders Comprehensive [place]. Panel Fast Today E78.00 - Pure hypercholesterolemia, unspecified, Z00.00 - Encounter for general adult medical examination without abnormal findings OT Evaluation and Treatment Today M77.8 - Other enthesopathies, not elsewhere classified Lipid Panel Today E78.00 - Pure hypercholesterolemia, unspecified, Z00.00 - Encounter for general adult medical examination without abnormal findings Referrals Physiatry Referral M54.12 - Radiculopathy, cervical region, M54.16 - Radiculopathy, lumbar region, M77.8 - Other enthesopathies, not elsewhere classified Medications: New celecoxib (Celebrex) 200 mg (2 x 100 mg) PO BID 30 days PRN 120 caps 2RF pain Coding Level of Care Code Est Pt Level 4 (98594) Diagnoses Polyarthralgia M25.50 Lumbar back pain with radiculopathy affecting right lower extremity M54.16 Cervical radiculopathy M54.12 Hypercholesterolemia E78.00
== END 2023-09-17 09:14 | disposition home or self-care (01) ==
PROVIDERS: PCP Family Medicine; Visit Provider Family Medicine
DX: M54.16 Radiculopathy, lumbar region (principal); M54.12 Radiculopathy, cervical region; M25.541 Pain in joints of right hand; M25.542 Pain in joints of left hand; E78.00 Pure hypercholesterolemia, unspecified
CPT/HCPCS: 99214

== ENCOUNTER → 2024-01-17 12:55 | Outpatient (BNVA) | payer SELFPAY | PROVIDERS: PCP Family Medicine; Visit Provider Physician Assistant Medical | DX: Z13.89 Encounter for screening for other disorder (principal) | CPT/HCPCS: 99203 ==

== ENCOUNTER → 2024-01-20 08:00 | Outpatient (BNVA) | payer OTHER, SELFPAY | PROVIDERS: PCP Family Medicine; Visit Provider Physician Assistant Medical | DX: Z13.89 Encounter for screening for other disorder (principal) | CPT/HCPCS: 99213 ==

== ENCOUNTER → 2024-01-25 08:42 | Outpatient (BNVA) | payer OTHER, SELFPAY | PROVIDERS: PCP Family Medicine; Visit Provider Physician Assistant Medical | DX: Z13.89 Encounter for screening for other disorder (principal) | CPT/HCPCS: 99213 ==

== ENCOUNTER → 2024-02-01 13:38 | Outpatient (BNVA) | payer OTHER, SELFPAY | PROVIDERS: PCP Family Medicine; Visit Provider Physician Assistant Medical | DX: Z13.89 Encounter for screening for other disorder (principal) | CPT/HCPCS: 99213 ==

== ENCOUNTER 2024-02-08 07:14 | Outpatient (REF) | payer OTHER, SELFPAY ==
--- NOTE | ~2024-02-08 | MR_ITS ---
EXAMINATION: MR CERVICAL SPINE WITHOUT CONTRAST CLINICAL INFORMATION: Cervical strain. Injury 3-4 weeks prior, finger numbness bilateral fifth digit region. COMPARISON: No prior MRI. Plain films cervical spine 07/02/2023. TECHNIQUE: Multiplanar multisequence MR imaging of the cervical spine was done prior to and without the administration IV gadolinium. Examination was performed on a 1.5 Nohelia Siemens unit, using standard sequences. In addition, sagittal oblique T2 sequences were also obtained to evaluate neural foraminal patency. FINDINGS: CORONAL ALIGNMENT: -There is a minimal right convex scoliosis. SAGITTAL ALIGNMENT: -Mild straightening of the upper cervical spine, C2-C5, nonspecific. Otherwise normal lordosis. -2 mm degenerative retrolisthesis of C6 on C7. Sagittal alignment otherwise anatomic. CRANIOCERVICAL JUNCTION/C1-2 ARTICULATIONS: -Intact and aligned. -Mild degenerative arthrosis C1-2. VERTEBRAL BODIES/BONE MARROW: -There are minimal edematous type endplate changes at C3-4. There are no fractures or gross bone marrow edema identified. -There are 2 small Schmorl's nodes in superior endplate of C4. -There is no abnormal infiltrating bone marrow signal. DISCS: -Moderate loss of disc height and signal C3-4, C4-5. Mild loss of height and signal at C5-C7. -Relative preservation of C2-3. CERVICAL CORD: -Normal in caliber and signal throughout without contusive change, hemorrhage, or impingement. PARAVERTEBRAL SOFT TISSUES: -No prevertebral, paravertebral, or paraspinous edema or abnormal fluid collection. -No retropharyngeal abnormality. -Normal flow voids in both vertebral arteries which are codominant. -Thyroid is obscured by a saturation band. VISUALIZED INTRACRANIAL STRUCTURES: -Within normal limits. AXIAL DISC SPACE IMAGING: C2-C3: Mild hypertrophic facet changes bilaterally. No central canal narrowing. No significant neural foraminal narrowing. C3-C4: Shallow diffuse disc bulge is present, mild left greater than right hypertrophic facet changes and mild hypertrophic uncinate changes bilaterally. No significant central canal stenosis or lateral recess stenosis. Moderate left and mild to moderate right neural foraminal stenosis. C4-C5: There is a left lateral and foraminal small disc osteophytic protrusion which is contiguous with left uncinate spurring. There is similar right uncinate spurring. There is no significant central canal stenosis or cord impingement. The lateral recesses are patent bilaterally. Rfda-ed-[id number] hypertrophic facet changes bilaterally, in combination with uncinate spurring results in severe left greater than right neural foraminal encroachment. C5-C6: There is a right lateral protrusion of disc material, indenting upon the ventral thecal sac but not resulting in significant central canal or lateral recess stenosis. There are moderate hypertrophic facet changes bilaterally, and right greater than left hypertrophic uncinate spurring, contributing to severe left greater than right neural foraminal stenosis. C6-C7: Shallow diffuse disc bulge is present, indenting minimally on the ventral thecal sac but not contacting the cord. There is no significant central canal or lateral recess narrowing. Bilateral moderate hypertrophic facet changes and mild bilateral uncinate spurring contribute to severe left greater than right neural foraminal stenosis. C7-T1: No significant disc bulging. Moderate hypertrophic facet changes bilaterally, with milder left greater than right uncinate spurring. There is no central canal or lateral recess stenosis. There is moderate left and mild right neural foraminal narrowing. T1-T3: No significant central canal narrowing and no significant neural foraminal narrowing. MR/MR cervical spine wo con IMPRESSION: 1. No evidence of acute injury to the cervical spine or surrounding soft tissues. The cord is normal in caliber and signal throughout without impingement. 2. Mild to moderate spondylosis of the cervical spine. This results in multilevel foraminal stenosis as described, however no significant central or lateral recess canal stenosis is present. 3. Mild edematous endplate changes at C3-4 are degenerative in appearance. Electronically signed by: Mauricio Gaines MD 02/16/2024 04:44 PM EDT
== END 2024-02-08 07:15 | disposition home or self-care (01) ==
LOC: HO.MRI 07:14
PROVIDERS: PCP Family Medicine; Visit Provider Physician Assistant Medical
DX: M54.12 Radiculopathy, cervical region (principal)
CPT/HCPCS: 72141

== ENCOUNTER → 2024-02-08 07:29 | Outpatient (BNV) | payer OTHER, SELFPAY | PROVIDERS: PCP Family Medicine; Visit Provider Radiology Diagnostic Radiology | DX: S13.4XXA Sprain of ligaments of cervical spine, initial encounter (principal) | CPT/HCPCS: 72141 ==

== ENCOUNTER → 2024-02-11 13:41 | Outpatient (BNVA) | payer OTHER, SELFPAY | PROVIDERS: PCP Family Medicine; Visit Provider Physician Assistant Medical | DX: Z13.89 Encounter for screening for other disorder (principal) | CPT/HCPCS: 99213 ==

== ENCOUNTER 2024-02-25 14:21 | Outpatient (AMB) | payer OTHER, SELFPAY ==
--- NOTE | 2024-02-25 14:23 | MHC.OFFVIS ---
Vital Signs 02/25/24 14:32 Height 5 ft 9 in Weight 140 lb 8 oz BMI 20.7 BP 150/70 H Blood Pressure Location Lt brachial Position Sitting Respiration 16 Pulse 71 Pulse Source Pulse Oximeter Pulse Oximetry (%) 97 Oxygen Delivery Method Room Air Intake Visit Reasons: Cervical and Lumbar Radiculopathy Intake Note: Patient comes in for initial visit was referred by [facility]. Reports pain 5/10. Allergies Seasonal Allergies Allergy (Intermediate, Verified 02/25/24 14:33) Itchy Eyes azithromycin Allergy (Unknown, Verified 02/25/24 14:33) vomiting HPI Comments Details: Patient is a 58-year-old male right hand dominant with prior history of cervical, thoracic and lumbar multilevel spondylosis with degenerative disc disease, degenerative changes in bilateral sacroiliac joints, lumbar radiculopathy and osteoarthritis, presents today for initial evaluation neck and back pain with radiculopathy due to work-related injury on 01/14/24. Worker's Comp Claim# [id number], Crossing Tender: Mildred Mejia. Patient is a [employer] employee who strained his neck, upper and lower back while pulling a cart with OR supplies while holding door open in December. He reports feeling sudden sharp pain in his lower neck and back, neck pain more severe than back pain. He was seen at [employer] [facility] and was ordered cervical spine MRI, results are noted below, including previous spine xray and lumbar spine MRI results. Neck pain is axial with limited range of motion and associated with muscle spasm and stiffness and radiation into upper extremities with tingling without upper extremity weakness. He also has lower back pain with chronic numbness in his hands and feet. Back pain intermittently radiates to the left lower extremity and more frequently into right calf and lateral right foot and 5th toe with associated weakness and aching. This has been chronic and he was previously evaluated by Dr. Taylor in 2020 but was deemed nonsurgical at that time. Pain affects his daily activities and functioning, sleep, work, mobility, recreational activities, mood and quality of life. Pain is most severe at evenings with intensity at 10/10 and least severe at 2/10. Currently rates his pain at 5/10 described as constant aching, dull, tingling, numbness, pins and needles. Patient completed physical therapy x5 weeks with minimal improvement in his functioning or pain reduction. Denies previous spine injections or surgery. He completed prednisone taper, gabapentin and Celebrex with continued symptoms. He is currently out of work due to significant pain. Denies any fever or chills, dizziness, visual disturbances, gait, imbalance or dexterity issues, bladder or bowel dysfunction or saddle anesthesia. [facility] Medical History Incomplete RBBB Surgical History Hx of LASIK History of hernia surgery (~2004) Family History Father No problems noted. Mother COPD (chronic obstructive pulmonary disease) Sister Autoimmune deficiency syndrome Other Mental health disorder Substance abuse Social History (Updated 09/17/23 @ 08:27 by CATHERINE Gonzalez) Household Members: Spouse and Family Both parents involved: No Caregiver staying overnight: No Housing: House Are you a primary patient care assistant to a significant other at home: No Do you presently have visiting nurse or other home services: No 75 years or older and lives alone: No Alcohol intake: current Alcohol intake frequency: 0-2 drinks per day Alcohol type: beer Patient Tobacco Use Status: Never used Tobacco e-Cigarette/Vaping Use: Never Used Substance Use Type: Marijuana service: Yes Current occupational status: retired Current occupation: Semi retired. Cognitive needs: No Hearing needs: No Vision needs: No Review of Systems Const All systems reviewed & are unremarkable except as noted in HPI and below Physical Exam Vital Signs: Last Vital Signs Pulse 71 02/25/24 14:32 Resp 16 02/25/24 14:32 BP 150/70 H 02/25/24 14:32 Pulse Ox 97 02/25/24 14:32 Oxygen Delivery Method Room Air 02/25/24 14:32 BMI result Body Mass Index 20.7 General: Appears afebrile. Alert and oriented. Mood and affect appropriate. Follows and participates in conversation appropriately. Respiratory effort is unlabored. No cough. Able to transition from sit to stand unassisted. Ambulates with bilaterally normal heel strike and toe off. Eyes General: appearance normal, both eyes and all related structures Neck Other: Patient with partially decreased cervical ROM in all planes/especially with lateral rotations and bending. Reports increased pain with cervical extension and flexion. Spurling compression test is negative. Pain is unchanged by Spurling maneuver with retraction. Elvey's tension test positive bilaterally, with radiation of pain from neck to wrist. Lhermitte's test was negative. DTR intact, +1 and symmetrical. Patient demonstrated 5 right and 4.5/5 left motor strength of bilateral upper extremities. 2 + radial pulses. Significant tightness throughout bilateral upper trapezius muscles. No paravertebral tenderness over facet joints bilaterally. Neck: Yes normal visual inspection, Yes no lymphadenopathy, Yes supple, No anterior neck swelling, Yes no JVD, No prominent supraclavicular fat pad and No prominent dorsocervical fat pad General: Yes no CVA tenderness Back/Spine/Pelvis Back: no CVA tenderness Cervical Spine: loss of normal cervical lordosis, cervical muscular tenderness, pain with cervical ROM, No Cervical spine scars present, cervical spasm, No Cervical spine tenderness and No step off deformity Thoracic/Lumbar Spine: thoracic and lumbar spine normal to inspection, No Thoracic/lumbar spine scar(s), Lasegue's sign negative, straight leg raise negative bilaterally, pain with thoraco-lumbar ROM, paraspinal muscle tenderness, No thoracic spinal tenderness and lumbar spinal tenderness at L4 and at L5 Pelvis: no buttock tenderness Sacroiliac joints: bilaterally tender to palpation (mild) Results Reviewed Results Reviewed: MR CERVICAL SPINE WITHOUT CONTRAST 02/08/24 CLINICAL INFORMATION: Cervical strain. Injury 3-4 weeks prior, finger numbness bilateral fifth digit region. COMPARISON: No prior MRI. Plain films cervical spine 07/02/2023. TECHNIQUE: Multiplanar multisequence MR imaging of the cervical spine was done prior to and without the administration IV gadolinium. Examination was performed on a 1.5 Nohelia Siemens unit, using standard sequences. In addition, sagittal oblique T2 sequences were also obtained to evaluate neural foraminal patency. FINDINGS: CORONAL ALIGNMENT: -There is a minimal right convex scoliosis. SAGITTAL ALIGNMENT: -Mild straightening of the upper cervical spine, C2-C5, nonspecific. Otherwise normal lordosis. -2 mm degenerative retrolisthesis of C6 on C7. Sagittal alignment otherwise anatomic. CRANIOCERVICAL JUNCTION/C1-2 ARTICULATIONS: -Intact and aligned. -Mild degenerative arthrosis C1-2. VERTEBRAL BODIES/BONE MARROW: -There are minimal edematous type endplate changes at C3-4. There are no fractures or gross bone marrow edema identified. -There are 2 small Schmorl's nodes in superior endplate of C4. -There is no abnormal infiltrating bone marrow signal. DISCS: -Moderate loss of disc height and signal C3-4, C4-5. Mild loss of height and signal at C5-C7. -Relative preservation of C2-3. CERVICAL CORD: -Normal in caliber and signal throughout without contusive change, hemorrhage, or impingement. PARAVERTEBRAL SOFT TISSUES: -No prevertebral, paravertebral, or paraspinous edema or abnormal fluid collection. -No retropharyngeal abnormality. -Normal flow voids in both vertebral arteries which are codominant. -Thyroid is obscured by a saturation band. VISUALIZED INTRACRANIAL STRUCTURES: -Within normal limits. AXIAL DISC SPACE IMAGING: C2-C3: Mild hypertrophic facet changes bilaterally. No central canal narrowing. No significant neural foraminal narrowing. C3-C4: Shallow diffuse disc bulge is present, mild left greater than right hypertrophic facet changes and mild hypertrophic uncinate changes bilaterally. No significant central canal stenosis or lateral recess stenosis. Moderate left and mild to moderate right neural foraminal stenosis. C4-C5: There is a left lateral and foraminal small disc osteophytic protrusion which is contiguous with left uncinate spurring. There is similar right uncinate spurring. There is no significant central canal stenosis or cord impingement. The lateral recesses are patent bilaterally. Qbvy-tx-ohhtwrec hypertrophic facet changes bilaterally, in combination with uncinate spurring results in severe left greater than right neural foraminal encroachment. C5-C6: There is a right lateral protrusion of disc material, indenting upon the ventral thecal sac but not resulting in significant central canal or lateral recess stenosis. There are moderate hypertrophic facet changes bilaterally, and right greater than left hypertrophic uncinate spurring, contributing to severe left greater than right neural foraminal stenosis. C6-C7: Shallow diffuse disc bulge is present, indenting minimally on the ventral thecal sac but not contacting the cord. There is no significant central canal or lateral recess narrowing. Bilateral moderate hypertrophic facet changes and mild bilateral uncinate spurring contribute to severe left greater than right neural foraminal stenosis. C7-T1: No significant disc bulging. Moderate hypertrophic facet changes bilaterally, with milder left greater than right uncinate spurring. There is no central canal or lateral recess stenosis. There is moderate left and mild right neural foraminal narrowing. T1-T3: No significant central canal narrowing and no significant neural foraminal narrowing. IMPRESSION: 1. No evidence of acute injury to the cervical spine or surrounding soft tissues. The cord is normal in caliber and signal throughout without impingement. 2. Mild to moderate spondylosis of the cervical spine. This results in multilevel foraminal stenosis as described, however no significant central or lateral recess canal stenosis is present. 3. Mild edematous endplate changes at C3-4 are degenerative in appearance. XR RIGHT HAND, LEFT HAND, LUMBAR SPINE, THORACIC SPINE, CERVICAL SPINE 07/02/23 CLINICAL INFORMATION: Chronic pain in lumbar, bilateral hands unspecified joints, cervical radiculopathy. COMPARISON: MR lumbar spine of 02/19/2020. Radiographs of the cervical and lumbar spine of 11/01/2019. TECHNIQUE: 3 views of each hand. 3 views of the lumbar spine. 3 views of the thoracic spine. 4 views of the cervical spine. FINDINGS: Cervical Spine: Moderate multilevel cervical spondylosis most notable for moderate loss of disc space height at C3-C4 and C4-C5. Thoracic Spine: Mild multilevel degenerative changes in the thoracic spine. Minimal rightward curvature of the lower thoracic spine. No thoracic vertebral body compression fractures are appreciated. Lumbar Spine: Slight leftward curvature of the vpb-co-xyoqb lumbar spine. Moderate degenerative changes in the bilateral sacroiliac joints. Rounded pelvic calcifications are likely vascular. Facet arthritis in the myi-xu-xfuwm lumbar spine. Moderate multilevel lumbar spondylosis with loss of disc space height most notable at L5-S1. Possible spondylolysis at L5-S1 is difficult to confirm. Right Hand: Moderate degenerative changes in the first carpometacarpal joint with joint space narrowing and hypertrophic change. Mild degenerative changes with hypertrophic change in scattered DIP joints. No acute displaced fracture appreciated. Left Hand: Moderate degenerative changes in the first carpometacarpal joint with joint space narrowing and hypertrophic change. Mild degenerative changes with hypertrophic change in scattered DIP joints. No acute displaced fracture appreciated. IMPRESSION: 1. Moderate degenerative changes in the bilateral first carpometacarpal joints. 2. Moderate multilevel cervical spondylosis most notable for moderate loss of disc space height at C3-C4 and C4-C5. 3. Mild multilevel degenerative changes in the thoracic spine. 4. Moderate multilevel lumbar spondylosis with loss of disc space height most notable at L5-S1. Possible spondylolysis at L5-S1 is difficult to confirm. 5. Moderate degenerative changes in the bilateral sacroiliac joints. 6. Mild degenerative changes in scattered DIP joints of both hands. MR LUMBAR SPINE WITHOUT CONTRAST 02/19/20 CLINICAL INFORMATION: Lumbar radiculopathy. Right leg weakness. COMPARISON: Lumbar spine radiographs 11/01/2019. TECHNIQUE: MRI of the lumbar spine was obtained using routine sequences without contrast. FINDINGS: Please note that there is transitional anatomy. For the purposes of this report L5 is partially sacralized, shares a rudimentary disc with S1, and is partially incorporated into the sacrum. 5 nonrib-bearing lumbar-type vertebral bodies are considered for this report. Please correlate with plain films prior to any percutaneous or surgical intervention. Lumbar alignment is maintained. Vertebral body heights are preserved. There is mild disc volume loss and there is disc desiccation at L5-S1. There is no bone marrow edema. There are no acute fractures. The conus terminates at the L1 level. No significant soft tissue findings. 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 L1-L2: Disc contour is normal. No central canal stenosis and no foraminal stenosis. L2-L3: Disc contour is normal. No central canal stenosis and no foraminal stenosis. L3-L4: Small annular disc bulge and mild bilateral facet arthropathy. No central canal stenosis. Mild foraminal encroachment bilaterally. L4-L5: There is a shallow left paracentral disc protrusion associated with an annular fissure that compresses the traversing left L5 nerve root within the left subarticular zone. Background annular disc bulge and moderate bilateral facet arthropathy. No central canal stenosis and no significant foraminal stenosis. L5-S1: Rudimentary disc contour is normal. No central canal stenosis and no foraminal stenosis. IMPRESSION: - Please note that there is transitional anatomy. For the purposes of this report L5 is partially sacralized, shares a rudimentary disc with S1, and is partially incorporated into the sacrum. 5 nonrib-bearing lumbar-type vertebral bodies are considered for this report. Please correlate with plain films prior to any percutaneous or surgical intervention. - At L4-L5, there is a shallow left paracentral disc protrusion associated with an annular fissure that compresses the traversing left L5 nerve root within the left subarticular zone. 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 Assessment & Plan Assessment & Plan (1) Cervical spondylosis: Code(s): M47.812 - Spondylosis without myelopathy or radiculopathy, cervical region Category: Medical (2) Lumbosacral spondylosis: Code(s): M47.817 - Spondylosis without myelopathy or radiculopathy, lumbosacral region Category: Medical (3) Cervical radiculopathy: Code(s): M54.12 - Radiculopathy, cervical region Category: Medical (4) Degenerative disc disease, cervical: Code(s): M50.30 - Other cervical disc degeneration, unspecified cervical region Category: Medical (5) Lumbar back pain with radiculopathy affecting right lower extremity: Code(s): M54.16 - Radiculopathy, lumbar region Category: Medical (6) Muscle spasm: Code(s): M62.838 - Other muscle spasm Category: Medical Plan Discussed interventional treatments for axial and radicular neck pain including diagnostic versus therapeutic injections, peripheral nerve stimulation, RFA, nad trigger point injections. Schedule C6-C7 Interlaminar ELAINE with local and fluoroscopy for radicular neck symptoms as initial steps. Expectations, risks and benefits were reviewed. Patient is aware he will be contacted to schedule this procedure. Subsequently will consider Bilateral C4-C5-C6 MBB to address axial neck pain. Scripts provided for lidocaine patches and diclofenac patches. Side effects and precautions were discussed with patient. Script provided for TENS unit via [employer]. TENS device will allow patient the ability to independently and safely treat neck and back pain, muscle spasms, improve range of motion, re-educate muscles and increase local circulation as well as to use it as part of their ongoing home therapy program. Patient is aware [employer] professional healthcare representative will contact him via text/call and send device directly to his home. All questions were answered and the patient is in agreement of plan. Follow-up after injections and sooner as needed. Medications: New lidocaine 5% leave on most painful area for up to 12 hrs topically daily; 30 days 30 ea 0RF pain M47.812 - Spondylosis without myelopathy or radiculopathy, cervical region, M47.817 - Spondylosis without myelopathy or radiculopathy, lumbosacral region diclofenac sodium 1% (Arthritis Pain (diclofenac)) 4 grams topical QID 100 grams 2RF pain M47.812 - Spondylosis without myelopathy or radiculopathy, cervical region, M47.817 - Spondylosis without myelopathy or radiculopathy, lumbosacral region Discontinued celecoxib (Celebrex) Discontinued Reason: Patient Completed Course 200 mg (2 x 100 mg) PO BID 30 days PRN 120 caps 2RF pain prednisone see taper instructions (5,5,4,4,3,3,2,2,1,1) Discontinued Reason: Patient Completed Course 10 mg PO DIRECTED 10 days 30 tabs 0RF Coding Level of Care Code New Pt Level 4 (09920) Diagnoses Cervical spondylosis M47.812 Lumbosacral spondylosis M47.817 Cervical radiculopathy M54.12 Degenerative disc disease, cervical M50.30 Lumbar back pain with radiculopathy affecting right lower extremity M54.16 Muscle spasm M62.838
[2024-02-25 14:32] VITALS: BP 150/70; PULSE 71; RESP 16; O2SAT 97; BMI 20.7
== END 2024-02-25 15:30 | disposition home or self-care (01) ==
LOC: HO.PMC 14:21
PROVIDERS: PCP Family Medicine; Referring Provider Physician Assistant Medical; Visit Provider Nurse Practitioner Family
DX: M47.812 Spondylosis without myelopathy or radiculopathy, cervical region (principal); M47.817 Spondylosis without myelopathy or radiculopathy, lumbosacral region; M54.12 Radiculopathy, cervical region; M50.30 Other cervical disc degeneration, unspecified cervical region; M54.16 Radiculopathy, lumbar region; M62.838 Other muscle spasm
CPT/HCPCS: 99204

== ENCOUNTER → 2024-02-25 14:21 | Outpatient (BNVA) | payer OTHER, SELFPAY | PROVIDERS: PCP Family Medicine; Referring Provider Physician Assistant Medical; Visit Provider Nurse Practitioner Family | DX: M47.22 Other spondylosis with radiculopathy, cervical region (principal); M47.27 Other spondylosis with radiculopathy, lumbosacral region; M50.30 Other cervical disc degeneration, unspecified cervical region; M62.838 Other muscle spasm | CPT/HCPCS: 99202 ==

== ENCOUNTER → 2024-02-29 11:08 | Outpatient (BNVA) | payer OTHER, SELFPAY | PROVIDERS: PCP Family Medicine; Visit Provider Physician Assistant Medical | DX: Z13.89 Encounter for screening for other disorder (principal) | CPT/HCPCS: 99213 ==

== ENCOUNTER → 2024-03-09 07:59 | Outpatient (BNVA) | payer OTHER, SELFPAY | PROVIDERS: PCP Family Medicine; Visit Provider Physician Assistant Medical | DX: Z13.89 Encounter for screening for other disorder (principal) | CPT/HCPCS: 99213 ==

== ENCOUNTER 2024-03-16 08:03 | Outpatient (REF) | payer OTHER, SELFPAY | END 2024-03-16 08:04 | disposition home or self-care (01) | LOC: CF 08:03 | PROVIDERS: Visit Provider Internal Medicine | DX: M50.30 Other cervical disc degeneration, unspecified cervical region (principal) | CPT/HCPCS: 99212; J1100; J2003; Q9967 ==

== ENCOUNTER 2024-03-16 10:36 | Outpatient (AMB) | payer OTHER, SELFPAY ==
--- NOTE | 2024-03-16 11:47 | MHC.OFFVIS ---
Intake Visit Reasons: C6-C7 interlaminar ELAINE Allergies Seasonal Allergies Allergy (Intermediate, Verified 02/25/24 14:33) Itchy Eyes azithromycin Allergy (Unknown, Verified 02/25/24 14:33) vomiting HPI HPI C6-C7 interlaminar ELAINE: Details: 58-year-old male presenting for cervical interlaminar epidural steroid injection. He had several questions about the nature of the procedure and its expected effectiveness. [facility], LATER [facility] Medical History Incomplete RBBB Surgical History Hx of LASIK History of hernia surgery (~2004) Family History Father No problems noted. Mother COPD (chronic obstructive pulmonary disease) Sister Autoimmune deficiency syndrome Other Mental health disorder Substance abuse Social History (Updated 09/17/23 @ 08:27 by CATHERINE Gonzalez) Household Members: Spouse and Family Both parents involved: No Caregiver staying overnight: No Housing: House Are you a primary resident care manager to a significant other at home: No Do you presently have visiting nurse or other home services: No 75 years or older and lives alone: No Alcohol intake: current Alcohol intake frequency: 0-2 drinks per day Alcohol type: beer Patient Tobacco Use Status: Never used Tobacco e-Cigarette/Vaping Use: Never Used Substance Use Type: Marijuana service: Yes Current occupational status: retired Current occupation: Semi retired. Cognitive needs: No Hearing needs: No Vision needs: No Physical Exam Vital Signs: On exam today: Appears afebrile. Alert and oriented. Mood and affect appropriate. Follows and participates in conversation appropriately. Respiratory effort is unlabored. Able to transition from sit to stand unassisted. Ambulates with bilaterally normal heel strike and toe off. Able to stand and walk on toes and heels. Results Reviewed Results Reviewed: C-spine MRI reviewed. Assessment & Plan Assessment & Plan (1) Degenerative disc disease, cervical: Code(s): M50.30 - Other cervical disc degeneration, unspecified cervical region Category: Medical Plan I had a detailed discussion with him regarding the procedure details as well as the expected duration of efficacy. We also discussed the role of physical therapy, strengthening and stretching as part of his overall therapeutic strategy. I counseled him that it is necessary for him to continue with the strengthening and stretching routine to gain as much benefit as possible from interventional treatment. We also discussed the role of interventional treatment in context of prioritizing conservative measures including stretching and strengthening, as primary modes of treatment. He stated that he would like to continue on that path for now and resort to interventional treatment only when he stops gaining relief from his home exercise program. I agreed with this plan so the procedure was canceled. He will continue his home exercise program and follow-up with us for interventional treatment in the future if he feels he has plateaued in his progress. Coding Level of Care Code Est Pt Level 3 (91124) Diagnoses Degenerative disc disease, cervical M50.30
== END 2024-03-16 11:24 | disposition home or self-care (01) ==
LOC: HO.PMCPRC 10:36
PROVIDERS: PCP Family Medicine; Visit Provider Internal Medicine
DX: M50.30 Other cervical disc degeneration, unspecified cervical region (principal)
CPT/HCPCS: 99213

== ENCOUNTER → 2024-03-20 08:47 | Outpatient (BNVA) | payer OTHER, SELFPAY | PROVIDERS: PCP Family Medicine; Visit Provider Internal Medicine | DX: Z13.89 Encounter for screening for other disorder (principal) | CPT/HCPCS: 99213 ==

== ENCOUNTER → 2024-04-03 08:09 | Outpatient (BNVA) | payer OTHER, SELFPAY | PROVIDERS: PCP Family Medicine; Visit Provider Internal Medicine | DX: Z13.89 Encounter for screening for other disorder (principal) | CPT/HCPCS: 99213 ==

== ENCOUNTER → 2024-04-21 08:11 | Outpatient (BNVA) | payer OTHER, SELFPAY | PROVIDERS: PCP Family Medicine; Visit Provider Internal Medicine | DX: Z13.89 Encounter for screening for other disorder (principal) | CPT/HCPCS: 99213 ==

== ENCOUNTER 2024-04-25 07:44 | Outpatient (RCR) | payer OTHER, SELFPAY ==
--- NOTE | 2024-01-25 09:43 | MHC.PT.EP ---
[facility] [place] Office [place] Office [place] Office [address] Lexus Arora [address] [phone] F: [phone] F: [phone] F: [phone] F: [phone] Physical Therapy Plan of Care Date of Evaluation: 01/24/24 Date of Surgery: N/A Diagnosis: Cervical strain, radiculopathy, lumbar strain Assessment: Pt is a 58yo male referred to PT for Cervical strain, radiculopathy, lumbar strain. Unable to reproduce radicular symptoms to 5th digits with ulnar nerve tension tests or cervical distraction, indicating a muscular pathology. Impairments include pain, headaches, reduced range of motion, gross upper extremity strength deficits, postural abnormalities, reduced tissue extensibility in suboccipital/cervical region, and difficulty with functional tasks such as lifting, walking long distances, and driving. Barriers to PT include chronicity of back pain and multiple locations of pain. Pt would benefit from a progressive strengthening/stretching program, postural re-education, functional task training for safe return to work, manual therapy to address tissue restrictions, and modalities for pain management. Frequency and Duration: The patient will be seen 2x/wk for 6 weeks Short Term Goals: Pt will demonstrate proper sitting posture with lumbar roll to optimize skeletal and muscular alignment Pt will be independent with HEP for self management of condition Pt will increase L cervical rotation by 10deg to facilitate head turns while driving Phlebotomist Supervisor/Instructor Goals: Pt will complain of 1-2 headaches per week to optimize return to work Pt will demonstrate a statistically significant difference in NDI to promote ease in functional activities Treatment Plan: Modalities to reduce pain, spasms and effusion. Manual therapy to restore motion and function. Therapeutic exercise to improve strength and flexibility. Neuromuscular re-education for posture and balance. Therapeutic activities to return to functional activities of daily living. Electronically signed by: Rita Delcid PT, DPT Please sign and return to therapist. Thank you for your referral.
--- NOTE | 2024-05-22 13:44 | MHC.PT.DC ---
[facility] [place] [facility] [place] [facility] [place] [facility] [address] Lexus Arora [address] [phone] F: [phone] F: [phone] F: [phone] F: [phone] Physical Therapy Discharge Report Diagnosis: Cervical strain, radiculopathy, lumbar strain Date of Surgery: N/A Date of Evaluation: 01/24/24 Date of Discharge: 05/22/24 Treatments to Date: 18 Cancellations to Date: 6 No Shows to Date: 1 Discharge Status: Discharge Summary: The patient was participating in a return to gym program by the end of his plan of care. He was instructed in proper posturing, progression of weights, and cardio usage. His radicular symptoms were centralized. He is discharged from this plan of care. Electronically signed by: Rita Delcid PT, DPT Please sign and return to therapist. Thank you for your referral.
== END 2024-05-22 13:44 | disposition home or self-care (01) ==
LOC: HO.PT 07:44
PROVIDERS: PCP Family Medicine; Visit Provider Physician Assistant Medical
DX: S16.1XXD Strain of muscle, fascia and tendon at neck level, subsequent encounter (principal); M54.12 Radiculopathy, cervical region; S39.012D Strain of muscle, fascia and tendon of lower back, subsequent encounter; M62.830 Muscle spasm of back
CPT/HCPCS: 97014; 97110; 97112; 97140; 97162; 97530

== ENCOUNTER 2024-05-03 11:13 | Outpatient (REF) | payer OTHER, SELFPAY ==
[2024-05-03 18:30] LABS: Influenza A PCR POSITIVE (Negative); Influenza B PCR NEGATIVE (Negative); Resp Syncy Virus RNA Qual PCR NEGATIVE (Negative); SARS COV2 PCR INHOUSE NEGATIVE (Negative)
== END 2024-05-03 11:14 | disposition home or self-care (01) ==
LOC: HO.LAB 11:13
PROVIDERS: PCP Family Medicine; Visit Provider Family Medicine
DX: B34.9 Viral infection, unspecified (principal); R53.83 Other fatigue; Z20.822 Contact with and (suspected) exposure to COVID-19
CPT/HCPCS: 0241U

== ENCOUNTER 2024-05-03 11:13 | Outpatient (AMB) | payer OTHER, SELFPAY ==
--- NOTE | 2024-05-03 11:14 | MHC.PC.OV ---
Vital Signs 05/03/24 11:21 Height 5 ft 9 in Weight 142 lb BMI 21.0 BP 110/70 Blood Pressure Location Rt brachial Position Sitting Respiration 12 Pulse 85 Pulse Source Pulse Oximeter Temp 97.6 F Temp Source Oral Pulse Oximetry (%) 98 Oxygen Delivery Method Room Air Intake Visit Reasons: Flu symptoms Intake Note: pt states he has been sick since thanksgiving his grandkids has been sick and tested positive for flu and adenotovirus. pt has been having cough sore throat discolored mucus and a headache and chills and no energy. Allergies Seasonal Allergies Allergy (Intermediate, Verified 05/03/24 11:18) Itchy Eyes azithromycin Allergy (Unknown, Verified 05/03/24 11:18) vomiting Tobacco use date assessed: 05/26/23 Dental Screening Dental Screen Date: 05/26/23 HPI Flu symptoms HPI Details Patient?has?been?feeling?sick?since?last?Wednesday.??Grandchildren?in?household?have?been?diagnosed?with?the?flu.??Patient?forgot?to?get?his?flu?shot?this?year. Significant?complaints?of?fatigue/malaise.??Nasal?discharge Minimal?cough He?check?a?COVID?test?which?was?negative [facility] Medical History Incomplete RBBB Surgical History Hx of LASIK History of hernia surgery (~2004) Family History Father No problems noted. Mother COPD (chronic obstructive pulmonary disease) Sister Autoimmune deficiency syndrome Other Mental health disorder Substance abuse Social History (Updated 09/17/23 @ 08:27 by CATHERINE Gonzalez) Household Members: Spouse and Family Both parents involved: No Caregiver staying overnight: No Housing: House Are you a primary health care coach to a significant other at home: No Do you presently have visiting nurse or other home services: No 75 years or older and lives alone: No Alcohol intake: current Alcohol intake frequency: 0-2 drinks per day Alcohol type: beer Patient Tobacco Use Status: Never used Tobacco e-Cigarette/Vaping Use: Never Used Substance Use Type: Marijuana service: Yes Current occupational status: retired Current occupation: Semi retired. Cognitive needs: No Hearing needs: No Vision needs: No Questionnaire PHQ-9 Over the last 2 weeks, how often have you been bothered by any of the following problems? 1. Little interest or pleasure in doing things: not at all 2. Feeling down, depressed, or hopeless: not at all 3. Trouble falling or staying asleep, or sleeping too much: not at all 4. Feeling tired or having little energy: not at all 5. Poor appetite or overeating: not at all 6. Feeling bad about yourself - or that you are a failure or have let yourself or your family down: not at all 7. Trouble concentrating on things, such as reading the newspaper or watching television: not at all 8. Moving or speaking so slowly that other people could have noticed. Or the opposite - being so fidgety or restless that you have been moving around a lot more than usual: not at all 9. Thoughts that you would be better off or of hurting yourself in some way: not at all Total score: 0 Source: Developed by Drs. Marcus Sparks, Maye Ureña, Sandeep Leyva and colleagues, with an educational shelley from [employer]. Thrive Questionnaire Date Thrive assessed: 05/03/24 I am a: Patient What is your living situation today?: I have a steady place to live Within the past 12 months, did the food you bought not last and you didn't have the money to get more?: Never true Within the past 12 months, did you worry whether your food would run out before you got money to buy more?: Never true Do you have trouble paying for medicines?: No Do you have trouble getting transportation to medical appointments?: No Do you have trouble paying your heating and electricity bill?: No Do you have trouble taking care of your child, family member or friend?: No Do you have trouble with day-to-day activities such as bathing, preparing meals, shopping, managing finances, etc.?: No Are you currently unemployed and looking for a job?: No Are you interested in more education?: No Please select the resources that you would like help with: None Currently or been in a relationship where the following occur: No concerns reported THRIVE Score: 0 AUDIT C Alcohol Use Questionnaire (AUDIT-C) 1. How often do you have a drink containing alcohol?: 2-3 times a week 2. How many drinks containing alcohol do you have on a typical day when you are drinking?: 1 or 2 3. How often do you have six or more drinks on one occasion?: Never Total Score: 3 ELVIRA-7 AMB Questionnaire ELVIRA-7 Date ELVIRA - 7 assessed: 05/26/23 Feeling nervous, anxious, or on edge: 1 = Several days Not being able to stop or control worryin = Several days Worrying too much about different things: 0 = Not at all Trouble relaxin = Several days Being so restless that it is hard to sit still: 0 = Not at all Becoming easily annoyed or irritable: 0 = Not at all Feeling afraid as if something awful might happen: 0 = Not at all Total ELVIRA-7 score (0-4 normal; 5-9 mild; 10-14 moderate; 15-21 severe): 3 Source: Developed by Drs. Marcus Sparks, Maye Ureña, Sandeep Leyva and colleagues, with an educational shelley from [employer]. Review of Systems Const Details: Fatigue.??Prior?headache?but?no?headaches?any?longer. Denies chills, Denies fatigue, Denies fever(s), Denies headache(s) and Denies weakness ENT Details: Nasal?discharge Denies dizziness and Denies headache(s) Card Denies chest pain, Denies lightheadedness, Denies dyspnea and Denies other (Palpitations) Resp Denies cough, Denies dyspnea, Denies wheezing and Denies other ( shortness of breath) Musc Denies numbness and Denies tingling Neuro Denies dizziness, Denies headache(s), Denies numbness, Denies tingling, Denies paresthesias and Denies weakness Psych Denies anxiety and Denies depression Endo Denies fatigue Aller/Immun Denies wheezing Physical exam (Primary Care) Vital Signs: Last Vital Signs Temp 97.6 F 05/03/24 11:21 Pulse 85 05/03/24 11:21 Resp 12 05/03/24 11:21 BP 110/70 05/03/24 11:21 Pulse Ox 98 05/03/24 11:21 Oxygen Delivery Method Room Air 05/03/24 11:21 BMI result Body Mass Index 21.0 Tobacco/Smoking Status: Tobacco use Status Tobacco use date assessed 05/26/23 05/03/24 11:15 Patient Tobacco Use Status Never used Tobacco 05/03/24 11:15 e-Cigarette/Vaping Use Never Used 05/03/24 11:15 PHQ-9: PHQ-9 Score PHQ-9: Total score 0 05/03/24 11:15 Thrive Assessment: Date of Thrive Assessment Date Thrive assessed 05/03/24 05/03/24 11:15 Currently or been in a relationship where the following occur: No concerns reported Const Other: Appears?mildly?ill General: no acute distress and well developed Nutritional Appearance: well nourished Orientation/consciousness: patient oriented x3 HENMT Other: Significant?nasal?discharge?but?no?blood?or?pus. No?sinus?tenderness?to?palpation Head: Yes normocephalic and Yes atraumatic Eyes General: appearance normal, both eyes and all related structures Pupils: Equal, round and reactive pupils present EOM: EOMs intact bilaterally Resp Effort & Inspection: normal respiratory effort Auscultation: clear to auscultation bilaterally Cardio Rate: regular rate Rhythm: regular rhythm Heart sounds: S1 normal heart sound present, S2 normal heart sound present, no gallops, no murmurs and no rubs Neuro General: patient oriented x3 and gait normal Cranial nerves: Yes Equal, round and reactive pupils present Psych Affect: normal affect Coding Level of Care Code Est Pt Level 3 (75060) Diagnoses Viral illness B34.9 Fatigue R53.83 Assessment & Plan Assessment & Plan (1) Viral illness: Code(s): B34.9 - Viral infection, unspecified Category: Medical Plan: Likely Viral?illness There?is?no?antibiotic?medication?for?viruses.??They?must?run?their?course.??Most?average?5-7?days?but?7-10?days?is?not?uncommon?and?up?to?14?days?is?still?possible.??A?cough?is?often?the?last?symptom?to?resolve?and?this?can?last?for?weeks?in?some?ca ses. Rest Hydrate?well?-??Drink?plenty?of?fluids.??Especially?water. Tylenol?or?ibuprofen?for?muscle?aches,?headache,?fever/discomfort Can?use?[id number]-[id number]?medications?for?cough?such?as?Delsym?or?DayQuil.??Prescription?cough?medicines?have?been?shown?to?be?no?better. Can?not?rule?out?COVID/flu/RSV?so?nasal?swab?is?acquired?and?will?be?sent?to?the?lab Will?give?a?note?to?remain?out?of?work?for?the?next?7?days.??May?return?on?the?16th?without?restrictions. (2) Fatigue: Code(s): R53.83 - Other fatigue Category: Medical Plan: Fatigue?likely?secondary?to?viral?illness?but?will?check?labs?including?CBC?CMP?and?thyroid?levels Orders: Orders TSH reflex Free T4 Today R53.83 - Other fatigue, Z00.00 - Encounter for general adult medical examination without abnormal findings Complete Blood Count Auto Diff Today R53.83 - Other fatigue, Z00.00 - Encounter for general adult medical examination without abnormal findings Comprehensive [place]. Panel Fast Today R53.83 - Other fatigue, Z00.00 - Encounter for general adult medical examination without abnormal findings SARS-CoV2/FLU/RSV Today B34.9 - Viral infection, unspecified, Z20.822 - Contact with and (suspected) exposure to COVID-19
[2024-05-03 11:21] VITALS: BP 110/70; PULSE 85; RESP 12; TEMP 36.4; O2SAT 98; BMI 21.0
== END 2024-05-03 11:43 | disposition home or self-care (01) ==
PROVIDERS: PCP Family Medicine; Visit Provider Family Medicine
DX: B34.9 Viral infection, unspecified (principal); R53.83 Other fatigue

== ENCOUNTER 2024-05-03 13:16 | Outpatient (REF) | payer OTHER, SELFPAY ==
[2024-05-03 14:28] LABS: MANUAL DIFF FLAG NO
[2024-05-03 14:37] LABS: Basophils Percent Auto 0.4 % (0-2); Eosinophils Absolute Auto 0.1 X10*3/uL (0.0-0.4); Hematocrit 42.9 % (42.0-52.0); Hemoglobin 14.5 g/dl (14.0-18.0); Imm Gran Abs Auto 0.01 X10*3/uL (0.00-0.03); Imm Gran Pct Auto 0.2 % (0.0-0.4); Lymphocytes Absolute Auto 1.8 X10*3/uL (1.2-4.9); Lymphocytes Percent Auto 37.7 % (20-40); Mean Corpuscular HGB Conc 33.8 g/dl (31.0-36.0); Mean Corpuscular Hemoglobin 29.7 pg (27.0-33.0); Mean Corpuscular Volume 87.7 fL (80.0-98.0); Monocytes Absolute Auto 0.5 X10*3/uL (0.1-1.2); Monocytes Percent Auto 9.6 % (2-11); Neutrophils Absolute Auto 2.5 x10*3/uL (2.0-8.3); Neutrophils Percent Auto 51.1 % (45-73); Platelet Count 290 X10*3/uL (160-400); Red Blood Count 4.89 X10*6/uL (4.60-5.80); Red Cell Distribution Width 13.1 % (11.0-16.0); White Blood Count 4.9 X10*3/uL (4.8-10.8)
[2024-05-03 15:23] LABS: TSH reflex Free T4 1.64 uIU/mL (0.32-4.0)
== END 2024-05-03 13:17 | disposition home or self-care (01) ==
LOC: HO.WFDLDS 13:16
PROVIDERS: Visit Provider Family Medicine
DX: Z00.00 Encounter for general adult medical examination without abnormal findings (principal); R53.83 Other fatigue
CPT/HCPCS: 36415; 84443; 85025

== ENCOUNTER → 2024-05-12 08:17 | Outpatient (BNVA) | payer OTHER, SELFPAY | PROVIDERS: PCP Family Medicine; Visit Provider Internal Medicine | DX: Z13.89 Encounter for screening for other disorder (principal) | CPT/HCPCS: 99213 ==

== ENCOUNTER 2024-08-03 08:34 | Outpatient (AMB) | payer OTHER, SELFPAY ==
--- NOTE | 2024-08-03 08:46 | MHC.PC.OV ---
Vital Signs 08/03/24 08:53 Height 5 ft 9 in Weight 153 lb 8 oz BMI 22.7 BP 100/70 Blood Pressure Location Lt brachial Position Sitting Respiration 99 H Pulse 74 Pulse Source Pulse Oximeter Temp 98.3 F Temp Source Oral Pulse Oximetry (%) 99 Oxygen Delivery Method Room Air Intake Visit Reasons: Hyper cholesterol Intake Note: patient wants to discuss celebrex and pregabalin Medical Device Engineer Required: No Allergies Seasonal Allergies Allergy (Intermediate, Verified 08/03/24 08:47) Itchy Eyes azithromycin Allergy (Unknown, Verified 08/03/24 08:47) vomiting Medication List - Last Reconciled 08/03/24 by Hudson Cuba MD celecoxib (Celebrex) 200 mg PO BID PRN gabapentin 200 mg PO DAILY lidocaine 5% leave on most painful area for up to 12 hrs topically daily; 30 days Tobacco use date assessed: 05/26/23 Dental Screening Dental Screen Date: 05/26/23 HPI Hyper cholesterol HPI Details Patient?was?scheduled?to?follow-up?on?lipids?but?has?not?gotten?these?drawn?yet. Patient?wants?to?discuss?Celebrex?which?he?was?taking?previously?and?also?discuss?his?gabapentin. History?of?cervical?and?lumbar?radiculopathy. [facility] Medical History Incomplete RBBB Surgical History Hx of LASIK History of hernia surgery (~2004) Family History Father No problems noted. Mother COPD (chronic obstructive pulmonary disease) Sister Autoimmune deficiency syndrome Other Mental health disorder Substance abuse Social History (Updated 09/17/23 @ 08:27 by CATHERINE Gonzalez) Household Members: Spouse and Family Both parents involved: No Caregiver staying overnight: No Housing: House Are you a primary point of care specialist to a significant other at home: No Do you presently have visiting nurse or other home services: No 75 years or older and lives alone: No Alcohol intake: current Alcohol intake frequency: 0-2 drinks per day Alcohol type: beer Patient Tobacco Use Status: Never used Tobacco e-Cigarette/Vaping Use: Never Used Substance Use Type: Marijuana service: Yes Current occupational status: retired Current occupation: Semi retired. Cognitive needs: No Hearing needs: No Vision needs: No Questionnaire Thrive Questionnaire Date Thrive assessed: 05/03/24 I am a: Patient What is your living situation today?: I have a steady place to live Within the past 12 months, did the food you bought not last and you didn't have the money to get more?: Never true Within the past 12 months, did you worry whether your food would run out before you got money to buy more?: Never true Do you have trouble paying for medicines?: No Do you have trouble getting transportation to medical appointments?: No Do you have trouble paying your heating and electricity bill?: No Do you have trouble taking care of your child, family member or friend?: No Do you have trouble with day-to-day activities such as bathing, preparing meals, shopping, managing finances, etc.?: No Are you currently unemployed and looking for a job?: No Are you interested in more education?: No Please select the resources that you would like help with: None Currently or been in a relationship where the following occur: No concerns reported THRIVE Score: 0 ELVIRA-7 AMB Questionnaire ELVIRA-7 Date ELVIRA - 7 assessed: 05/26/23 Source: Developed by Drs. Marcus Sparks, Maye Ureña, Sandeep Leyva and colleagues, with an educational shelley from [employer]. Review of Systems Const Denies chills, Denies fatigue, Denies fever(s), Denies headache(s) and Denies weakness ENT Denies dizziness and Denies headache(s) Card Denies dyspnea Resp Denies cough, Denies dyspnea, Denies wheezing and Denies other (shortness of breath) Musc Denies numbness and Denies tingling Neuro Denies dizziness, Denies headache(s), Denies numbness, Denies tingling and Denies weakness Psych Denies anxiety and Denies depression Endo Denies fatigue Aller/Immun Denies wheezing Physical exam (Primary Care) Vital Signs: Last Vital Signs Temp 98.3 F 08/03/24 08:53 Pulse 74 08/03/24 08:53 Resp 99 H 08/03/24 08:53 BP 100/70 08/03/24 08:53 Pulse Ox 99 08/03/24 08:53 Oxygen Delivery Method Room Air 08/03/24 08:53 BMI result Body Mass Index 22.7 Tobacco/Smoking Status: Tobacco use Status Tobacco use date assessed 05/26/23 08/03/24 08:51 Patient Tobacco Use Status Never used Tobacco 08/03/24 08:51 e-Cigarette/Vaping Use Never Used 08/03/24 08:51 Thrive Assessment: Date of Thrive Assessment Date Thrive assessed 05/03/24 08/03/24 08:51 Currently or been in a relationship where the following occur: No concerns reported Const General: well developed; No acute distress Nutritional Appearance: well nourished Orientation/consciousness: patient oriented x3 HENMT Head: Yes normocephalic and Yes atraumatic Eyes General: appearance normal, both eyes and all related structures Pupils: Equal, round and reactive pupils present EOM: EOMs intact bilaterally Resp Effort & Inspection: normal respiratory effort Neuro General: patient oriented x3 and gait normal Cranial nerves: Yes Equal, round and reactive pupils present Psych Affect: normal affect Coding Level of Care Code Est Pt Level 3 (14944) Diagnoses Cervical spondylosis M47.812 Hypercholesterolemia E78.00 Assessment & Plan Assessment & Plan (1) Cervical spondylosis: Code(s): M47.812 - Spondylosis without myelopathy or radiculopathy, cervical region Category: Medical Plan: Resume?Celebrex Increase?gabapentin?to?300?mg?b.i.d. Start?physical?therapy Ice/heat Will?give?him?a?short?course?cyclobenzaprine?which?he?can?use?after physical therapy days (2) Hypercholesterolemia: Code(s): E78.00 - Pure hypercholesterolemia, unspecified Category: Medical Plan: Patient?will?get?his?labs?drawn?and?we?can?follow-up?on?these?in?about?a?month?by?telemedicine Orders: Orders PT Evaluation and Treatment Today M54.12 - Radiculopathy, cervical region Medications: New celecoxib (Celebrex) 200 mg PO BID 90 days PRN 180 caps 2RF pain cyclobenzaprine 10 mg PO DAILY 7 days PRN 7 tabs 0RF muscle spasm Changed From gabapentin 200 mg PO DAILY To gabapentin 300 mg PO BID 90 days 180 caps 2RF
[2024-08-03 08:53] VITALS: BP 100/70; PULSE 74; RESP 99; TEMP 36.8; O2SAT 99; BMI 22.7
== END 2024-08-03 09:18 | disposition home or self-care (01) ==
LOC: HO.HMCFM 08:35
PROVIDERS: PCP Family Medicine; Visit Provider Family Medicine
DX: M47.812 Spondylosis without myelopathy or radiculopathy, cervical region (principal); E78.00 Pure hypercholesterolemia, unspecified

== ENCOUNTER → 2024-08-03 08:34 | Outpatient (BNVA) | payer OTHER, SELFPAY | PROVIDERS: PCP Family Medicine; Visit Provider Family Medicine | DX: Z13.89 Encounter for screening for other disorder (principal) ==

== ENCOUNTER 2024-09-04 09:57 | Outpatient (REF) | payer OTHER, SELFPAY ==
[2024-09-04 12:06] LABS: Alanine Aminotransferase 23 U/L (0-40); Albumin Level 4.1 g/dL (3.5-5.0); Anion Gap 12 (12-20); Aspartate Amino Transferase 28 U/L (5-37); Bilirubin Total 0.4 mg/dL (0.0-1.0); Blood Urea Nitrogen 13 mg/dL (9-16); Calcium 9.2 mg/dL (8.4-10.2); Carbon Dioxide 27 mmol/L (22-29); Chloride 103 mmol/L (96-108); Cholesterol 215 mg/dL (<200); Estimated Glomerular Filt Rate > 60; Glucose Fasting 90 mg/dL (60-99); HDL Cholesterol 61 mg/dL (>40); LDL Cholesterol Calculated 140 mg/dL (<100); Potassium 4.2 mmol/L (3.3-5.1); Sodium 138 mmol/L (135-145); Total Protein 6.7 g/dL (6.5-8.0); Triglycerides 72 mg/dL (<150)
[2024-09-04 12:24] LABS: Alkaline Phosphatase 65 U/L (39-117)
== END 2024-09-04 09:58 | disposition home or self-care (01) ==
LOC: HO.WFDLDS 09:57
PROVIDERS: Visit Provider Family Medicine
DX: Z00.00 Encounter for general adult medical examination without abnormal findings (principal); E78.00 Pure hypercholesterolemia, unspecified
CPT/HCPCS: 36415; 80053; 80061

== ENCOUNTER 2024-10-11 14:04 | Outpatient (RCR) | payer OTHER, SELFPAY | END 2024-11-02 13:36 | disposition home or self-care (01) | LOC: HO.PT 14:04 | PROVIDERS: PCP Family Medicine; Visit Provider Family Medicine | DX: M54.12 Radiculopathy, cervical region (principal) | CPT/HCPCS: 97012; 97110; 97140; 97161; 97535 ==

== ENCOUNTER 2025-01-08 08:53 | Outpatient (REF) | payer OTHER, SELFPAY ==
[2025-01-08 11:54] LABS: Alanine Aminotransferase 30 U/L (0-40); Albumin Level 4.4 g/dL (3.5-5.0); Alkaline Phosphatase 69 U/L (39-117); Anion Gap 9 (12-20); Aspartate Amino Transferase 30 U/L (5-37); Blood Urea Nitrogen 10 mg/dL (9-16); Calcium 9.2 mg/dL (8.4-10.2); Carbon Dioxide 29 mmol/L (22-29); Chloride 106 mmol/L (96-108); Estimated Glomerular Filt Rate > 60; Potassium 4.4 mmol/L (3.3-5.1); Sodium 140 mmol/L (135-145); Total Protein 6.8 g/dL (6.5-8.0)
== END 2025-01-08 08:54 | disposition home or self-care (01) ==
LOC: HO.WFDLDS 08:53
PROVIDERS: Visit Provider Family Medicine
DX: Z00.00 Encounter for general adult medical examination without abnormal findings (principal); R53.83 Other fatigue
CPT/HCPCS: 36415; 80053

== ENCOUNTER 2025-01-15 09:51 | Outpatient (REF) | payer OTHER, SELFPAY ==
[2025-01-15 12:18] LABS: Anion Gap 12 (12-20); Blood Urea Nitrogen 9 mg/dL (9-16); Calcium 9.4 mg/dL (8.4-10.2); Carbon Dioxide 27 mmol/L (22-29); Chloride 106 mmol/L (96-108); Cholesterol 232 mg/dL (<200); Estimated Glomerular Filt Rate > 60; HDL Cholesterol 54 mg/dL (>40); Potassium 4.1 mmol/L (3.3-5.1); Sodium 141 mmol/L (135-145); Triglycerides 94 mg/dL (<150)
[2025-01-16 09:02] LABS: Lyme Abs Screen <0.90 index
[2025-01-16 21:38] LABS: Anti Nuclear Antibody Pattern Nuclear, Speckled; Anti Nuclear Antibody Screen POSITIVE (NEGATIVE); Anti Nuclear Antibody Titer 1:80 titer
== END 2025-01-15 09:52 | disposition home or self-care (01) ==
LOC: HO.WFDLDS 09:51
PROVIDERS: Visit Provider Family Medicine
DX: Z00.00 Encounter for general adult medical examination without abnormal findings (principal); M54.16 Radiculopathy, lumbar region; E78.00 Pure hypercholesterolemia, unspecified
CPT/HCPCS: 36415; 80048; 80061; 85652; 86038; 86039; 86141; 86200; 86431; 86617; 86618

== ENCOUNTER 2025-02-06 10:28 | Outpatient (AMB) | payer OTHER, SELFPAY ==
--- NOTE | 2025-02-06 10:23 | MHC.PC.OV ---
Intake Visit Reasons: labs review Intake Note: Rohit presents for a telehealth appointment to go over his recent lab resutls. Allergies Seasonal Allergies Allergy (Intermediate, Verified 02/06/25 10:24) Itchy Eyes azithromycin Allergy (Unknown, Verified 02/06/25 10:24) vomiting Medication List - Last Reconciled 02/06/25 by Hudson Cuba MD celecoxib (Celebrex) 200 mg PO BID cyclobenzaprine 10 mg PO DAILY PRN 7 days gabapentin 300 mg PO BID 90 days lidocaine 5% leave on most painful area for up to 12 hrs topically daily; 30 days Tobacco use date assessed: 02/06/25 Dental Screening Dental Screen Date: 02/06/25 Did you have a dental visit in the last 12 months?: No Did you have a dental problem in the last 6 months where you did not have access to dental care?: No Was dental information given to patient?: Patient declined HPI labs review HPI Details 59 y/o male presents to f/u labs via telemed. Labs drawn 01/15/25. Reviewed labs with pt. Triglycerides 94. TC 232. LDL 160. HDL 54. Pt reports ongoing chronic pain, polyarthralgia. Has been taking gabapentin for relief. [facility] Medical History Incomplete RBBB Surgical History Hx of LASIK History of hernia surgery (~2004) Family History Father No problems noted. Mother COPD (chronic obstructive pulmonary disease) Sister Autoimmune deficiency syndrome Other Mental health disorder Substance abuse Social History (Updated 02/06/25 @ 10:26 by Rhonda Lou CMA) Household Members: Spouse and Family Both parents involved: No Caregiver staying overnight: No Housing: House Are you a primary pharmacist critical care to a significant other at home: No Do you presently have visiting nurse or other home services: No 75 years or older and lives alone: No Alcohol intake: current Alcohol intake frequency: 0-2 drinks per day Alcohol type: beer Patient Tobacco Use Status: Never used Tobacco e-Cigarette/Vaping Use: Never Used Use of substances other than those prescribed or required for medical reasons: Yes Substance Use Type: Marijuana service: Yes Current occupational status: retired Current occupation: Semi retired. Cognitive needs: No Hearing needs: No Vision needs: No Questionnaire Thrive Questionnaire Date Thrive assessed: 05/03/24 ELVIRA-7 AMB Questionnaire ELVIRA-7 Date ELVIRA - 7 assessed: 05/26/23 Source: Developed by Drs. Marcus Sparks, Maye Ureña, Sandeep Lyeva and colleagues, with an educational shelley from [employer]. Review of Systems Const Denies chills, Denies fatigue, Denies fever(s), Denies headache(s) and Denies weakness ENT Denies dizziness and Denies headache(s) Card Denies dyspnea Resp Denies cough, Denies dyspnea, Denies wheezing and Denies other (shortness of breath) Musc Denies numbness and Denies tingling Neuro Denies dizziness, Denies headache(s), Denies numbness, Denies tingling and Denies weakness Psych Denies anxiety and Denies depression Endo Denies fatigue Aller/Immun Denies wheezing Physical exam (Primary Care) Tobacco/Smoking Status: Tobacco use Status Tobacco use date assessed 02/06/25 02/06/25 10:27 Patient Tobacco Use Status Never used Tobacco 02/06/25 10:27 e-Cigarette/Vaping Use Never Used 02/06/25 10:27 Thrive Assessment: Date of Thrive Assessment Date Thrive assessed 05/03/24 02/06/25 10:27 Telehealth Telehealth Telehealth Platform: Telephone Location of provider rendering services: practice address Location of patient: address on file Patient Identification confirmed using: Name, : Yes Telehealth method: voice only Patient verbally consented to treatment: Yes Patient verbally consented to billing insurance company: Yes Patient informed of any privacy concerns related to visit: Yes Minutes spent on Phone/Video with Pt.: 12 Coding Level of Care Code Tele Est Pt Level 2 (41466) Diagnoses Hypercholesterolemia E78.00 Polyarthralgia M25.50 Assessment & Plan Assessment & Plan (1) Hypercholesterolemia: Code(s): E78.00 - Pure hypercholesterolemia, unspecified Category: Medical Plan: LDL cholesterol has increased from 140-160 and has been consistently high. Patient has history of polyarthralgias so he has been somewhat hesitant to start a statin medication. Patient agrees to try atorvastatin 40 mg daily. He can titrate up to 40 mg over a week. Continue healthy diet and exercise (2) Polyarthralgia: Code(s): M25.50 - Pain in unspecified joint Category: Medical Plan: He is taking Celebrex KELLY 1:80; equivocal Continue Celebrex Continue exercise as tolerated Physiatry Orders: Orders Lipid Panel Today E78.00 - Pure hypercholesterolemia, unspecified, Z00.00 - Encounter for general adult medical examination without abnormal findings Comprehensive [place]. Panel Fast Today E78.00 - Pure hypercholesterolemia, unspecified, Z00.00 - Encounter for general adult medical examination without abnormal findings Medications: New atorvastatin (Lipitor) 40 mg PO BEDTIME 90 tabs 3RF 90 days Changed From celecoxib (Celebrex) 200 mg PO BID 90 days PRN 180 caps 2RF pain To celecoxib (Celebrex) 200 mg PO BID
== END 2025-02-06 12:11 | disposition home or self-care (01) ==
LOC: HO.HMCFM 10:28
PROVIDERS: PCP Family Medicine; Visit Provider Family Medicine
DX: E78.00 Pure hypercholesterolemia, unspecified (principal); M25.50 Pain in unspecified joint

== ENCOUNTER 2025-04-25 09:30 | Outpatient (REF) | payer OTHER, SELFPAY ==
[2025-04-25 12:01] LABS: Alanine Aminotransferase 32 U/L (0-40); Albumin Level 4.6 g/dL (3.5-5.0); Alkaline Phosphatase 63 U/L (39-117); Anion Gap 13 (12-20); Aspartate Amino Transferase 34 U/L (5-37); Blood Urea Nitrogen 11 mg/dL (9-16); Calcium 9.5 mg/dL (8.4-10.2); Carbon Dioxide 26 mmol/L (22-29); Chloride 105 mmol/L (96-108); Cholesterol 132 mg/dL (<200); Estimated Glomerular Filt Rate > 60; HDL Cholesterol 60 mg/dL (>40); Potassium 4.0 mmol/L (3.3-5.1); Sodium 140 mmol/L (135-145); Total Protein 7.0 g/dL (6.5-8.0); Triglycerides 46 mg/dL (<150)
== END 2025-04-25 09:31 | disposition home or self-care (01) ==
LOC: HO.WFDLDS 09:30
PROVIDERS: Visit Provider Family Medicine
DX: Z00.00 Encounter for general adult medical examination without abnormal findings (principal); E78.00 Pure hypercholesterolemia, unspecified
CPT/HCPCS: 36415; 80053; 80061